=== PATIENT | female | born 1930 | race Caucasian/White ===

== ENCOUNTER 2017-04-13 19:50 | Emergency (ER) | payer OTHER, MEDICARE ==
[2017-04-13 20:02] VITALS: BP 190/87; PULSE 72; TEMP 98; BMI 25.7
--- NOTE | 2017-04-13 21:05 | PDOC ---
History of Present Illness - General Chief Complaint: Injury Stated Complaint: INJURY TO RIGHT RING FINGER Time Seen by Provider: 04/13/17 21:03 Past History - Past Medical History Allergies/Adverse Reactions: Allergies Allergy/AdvReac Type Severity Reaction Status Date / Time amoxicillin Allergy Verified 12/21/15 15:05 ibuprofen [From Advil] Allergy Verified 04/13/17 19:53 lidocaine Allergy Verified 12/21/15 15:05 Home Medications: Ambulatory Orders RX: Alprazolam 0.25 mg PO DAILY 12/21/15 RX: Amlodipine Besylate 5 mg PO DAILY 12/21/15 RX: Ciclopirox/Skin Cleanser No.28 [Ciclodan 0.77% Cream Kit] 544 gm TP DAILY RX: Furosemide 20 mg PO DAILY PRN 12/21/15 RX: Metoprolol Succinate [Toprol XL -] 50 mg PO DAILY 12/21/15 RX: Ranitidine [Zantac -] 150 mg PO DAILY 12/21/15 RX: Wheat Dextrin [Benefiber] 1 each PO DAILY 12/24/15 Diabetes: Yes GI Disorders: Yes (GERD;ULCERATIVE COLITIS) HTN: Yes - Surgical History Orthopedic Surgery: Yes (ROTATOR CUFF) - Psycho/Social/Smoking Cessation Hx Anxiety: No Suicidal Ideation: No Smoking History: Never smoked Have you smoked in the past 12 months: No Information on smoking cessation initiated: No Hx Alcohol Use: No Drug/Substance Use Hx: No Substance Use Type: None *Physical Exam - Vital Signs Last Vital Signs Temp Pulse Resp BP Pulse Ox 98 F 72 20 190/87 99 04/13/17 19:58 04/13/17 19:58 04/13/17 19:58 04/13/17 19:58 04/13/17 19:58 ED Treatment Course - RADIOLOGY Radiology Studies Ordered: Category Date Time Status FINGER(S) RIGHT [RAD] Stat Radiology 04/13/17 20:02 Completed Medical Decision Making - Medical Decision Making 04/13/17 21:22 86 F with tuft fx of R 4th finger. No evidence of nailbed injury on exam, no subungual hematoma. Pt with no evidence of neurovascular injury, flexor and extensor tendons intact. - Finger splint - Hand clinic follow up *DC/Admit/Observation/Transfer Diagnosis at time of Disposition: Closed fracture of tuft of distal phalanx of finger - Discharge Dispostion Disposition: HOME Condition at time of disposition: Stable - Referrals Referrals: Vanessa Arnold MD [Primary Care Provider] - Marlon Nicole MD [Staff Physician] - - Patient Instructions Printed Discharge Instructions: DI for Finger Fracture Additional Instructions: You must see an orthopedic surgeon in 1 week for a re-evaluation, and keep your finger in the splint until you are able to see an orthopedist. Failure to do so may result in improper healing and deformity of your finger.
--- NOTE | 2017-04-14 11:41 | PDOC ---
Patient Follow-up (Call Back) - Post ED Follow - Up Condition at time of discharge: Stable Disposition at time of original discharge: HOME - Disposition Rx Needed: Yes Additional Instructions/Notes: Pt called stating she was expecting a Percocet rx but it was never sent. Given percocet last night with good relief and slept throughout the night. She has tramadol at home from prior injury but states it gives her bad side effects. I warned her extensively of the risks of taking percocet (particularly given her age) but she states she tolerated it well and will take it only at night before going to bed. I warned of the risks of getting up during the night also. Percocet rx sent to preferred pharmacy with clear instructions.
== END 2017-04-13 21:36 | disposition home or self-care (01) ==
LOC: FER 19:50
PROC: 2W3JX1Z Immobilization of Right Finger using Splint (ICD-10-PCS; principal; 2017-04-13)
DX: S62.664A Nondisplaced fracture of distal phalanx of right ring finger, initial encounter for closed fracture (principal); X58.XXXA Exposure to other specified factors, initial encounter; Y93.89 Activity, other specified; Y92.9 Unspecified place or not applicable
CPT/HCPCS: 73140-TC-RT; 99281-25

== ENCOUNTER 2017-08-15 20:50 | Emergency (ER) | payer OTHER, MEDICARE ==
--- NOTE | 2017-08-15 21:11 | PDOC ---
History of Present Illness - General History Source: Patient Exam Limitations: No Limitations - History of Present Illness Initial Comments: 08/15/17 22:10 The patient is a 87 year old female with a significant PMH of hypertension and ulcerative colitis who presents to the emergency department with an episode of high blood pressure and mild heachache today. The patient states she forgot to take her amlodipine this morning so she took her med at 4:00PM today. The patient measured her blood pressure at home where it was 200 systolic but cannot recall the diastolic. She was worried her machine was inaccurate so she went for a repeat read at [facility] where it was 200/90. At presentation, her blood pressure was 163/71. The patient states she exercises regularly but felt unwell today and decided not to exercise. The patient reports she has been eating soups from a local diner almost every day. The patient notes she has not eaten anything since lunch. The patient denies any recent anxiety. The patient denies chest pain, shortness of breath, and dizziness. Denies fever, chills, nausea, vomit, diarrhea and constipation. Denies dysuria, frequency, urgency and hematuria. Allergies: amoxicillin, ibuprofen, lidocaine Past surgical history: None reported Social history: No reported alcohol, cigarette, or drug use. PCP: Dr. Vanessa Arnold <Jody Otto - Last Filed: 08/15/17 22:10> <Jessie Alfonso - Last Filed: 08/16/17 07:04> - General Chief Complaint: Blood Pressure Problem Stated Complaint: ELEVATED BLOOD PRESSURE Time Seen by Provider: 08/15/17 21:05 Past History <Jody Otto - Last Filed: 08/15/17 22:10> - Past Medical History Diabetes: Yes GI Disorders: Yes (GERD;ULCERATIVE COLITIS) HTN: Yes - Surgical History Orthopedic Surgery: Yes (ROTATOR CUFF) - Suicide/Smoking/Psychosocial Hx Smoking History: Never smoked Have you smoked in the past 12 months: No Hx Alcohol Use: No Drug/Substance Use Hx: No Substance Use Type: None <Jessie Alfonso - Last Filed: 08/16/17 07:04> - Past Medical History Allergies/Adverse Reactions: Allergies Allergy/AdvReac Type Severity Reaction Status Date / Time amoxicillin Allergy Verified 08/15/17 20:57 ibuprofen [From Advil] Allergy Verified 08/15/17 20:57 lidocaine Allergy Verified 08/15/17 20:57 Home Medications: Ambulatory Orders Alprazolam 0.25 mg PO DAILY 12/21/15 Amlodipine Besylate 5 mg PO DAILY 12/21/15 Ciclopirox/Skin Cleanser No.28 [Ciclodan 0.77% Cream Kit] 544 gm TP DAILY Furosemide 20 mg PO DAILY PRN 12/21/15 Ranitidine [Zantac -] 150 mg PO DAILY 12/21/15 Wheat Dextrin [Benefiber] 1 each PO DAILY 12/24/15 Review of Systems - Review of Systems Able to Perform ROS?: Yes Comments:: 08/15/17 22:11 GENERAL/CONSTITUTIONAL: No fever or chills. No weakness. HEAD, EYES, EARS, NOSE AND THROAT: No change in vision. No ear pain or discharge. No sore throat. CARDIOVASCULAR: No chest pain or shortness of breath. RESPIRATORY: No cough, wheezing, or hemoptysis. GASTROINTESTINAL: No nausea, vomiting, diarrhea or constipation. GENITOURINARY: No dysuria, frequency, or change in urination. MUSCULOSKELETAL: No joint or muscle swelling or pain. No neck or back pain. SKIN: No rash NEUROLOGIC: (+) Headache. No vertigo, loss of consciousness, or change in strength/sensation. ENDOCRINE: No increased thirst. No abnormal weight change. HEMATOLOGIC/LYMPHATIC: No anemia, easy bleeding, or history of blood clots. ALLERGIC/IMMUNOLOGIC: No hives or skin allergy. <Jody Otto - Last Filed: 08/15/17 22:10> *Physical Exam - Vital Signs Last Vital Signs Temp Pulse Resp BP Pulse Ox 98.4 F 60 20 162/76 99 08/15/17 20:57 08/15/17 20:57 08/15/17 20:57 08/15/17 20:57 08/15/17 20:57 - Physical Exam Comments: 08/15/17 22:11 GENERAL: Awake, alert, and fully oriented, in no acute distress HEAD: No signs of trauma EYES: PERRLA, EOMI, sclera anicteric, conjunctiva clear ENT: Auricles normal inspection, hearing grossly normal, nares patent, oropharynx clear without exudates. Moist mucosa NECK: Normal ROM, supple, no lymphadenopathy, JVD, or masses LUNGS: Breath sounds equal, clear to auscultation bilaterally. No wheezes, and no crackles HEART: Regular rate and rhythm, normal S1 and S2, no murmurs, rubs or gallops ABDOMEN: Soft, nontender, normoactive bowel sounds. No guarding, no rebound. No masses EXTREMITIES: Normal range of motion, no edema. No clubbing or cyanosis. No cords , erythema, or tenderness NEUROLOGICAL: Cranial nerves II through XII grossly intact. Normal speech, normal gait SKIN: Warm, Dry, normal turgor, no rashes or lesions noted. <Jody Otto - Last Filed: 08/15/17 22:10> - Vital Signs Last Vital Signs Temp Pulse Resp BP Pulse Ox 98.4 F 60 20 162/76 99 08/15/17 20:57 08/15/17 20:57 08/15/17 20:57 08/15/17 20:57 08/15/17 20:57 <Jessie Alfonso - Last Filed: 08/16/17 07:04> ED Treatment Course - Medications Given in the ED: ED Medications Discontinued Medications Generic Name Dose Route Start Last Admin Trade Name Freq PRN Reason Stop Dose Admin Furosemide 20 mg 08/15/17 21:33 08/15/17 21:42 Lasix - PO 08/15/17 21:34 20 mg ONCE ONE Administration <Jody Otto - Last Filed: 08/15/17 22:10> Medical Decision Making - Medical Decision Making 08/16/17 07:02 Pt comes with incidentally high BP. She checked her BP only because her neighbor was doing the same. Pt has no complaints. We figured that pt has been eating a lot of salty soup from the diner ordering out. Pt has no other complaints. Exam normal, EKG nonspecific T changes. Pt feels good. She was given a dose of lasix (her dr prescribed her the same PRN - pt admits that she rarely takes it.) Pt will go home and follow with PMD as needed. <Jessie Alfonso - Last Filed: 08/16/17 07:04> *DC/Admit/Observation/Transfer - Attestations Scribe Attestion: 08/15/17 22:12 Documentation prepared by Jody Otto, acting as chief medical officer for Jessie Alfonso MD. <Jody Otto - Last Filed: 08/15/17 22:10> - Discharge Dispostion Admit: No <Jessie Alfonso - Last Filed: 08/16/17 07:04> Diagnosis at time of Disposition: Hypertension - Discharge Dispostion Disposition: HOME Condition at time of disposition: Stable - Patient Instructions Printed Discharge Instructions: DI for High Blood Pressure, How to Monitor Your Blood Pressure at Home
[2017-08-15 21:16] VITALS: BP 162/76; PULSE 60; TEMP 98.4; BMI 23.9
[2017-08-15] MEDS ORDERED: FUROSEMIDE 20 MG TABLET (FP) PO ONE (21:33)
[2017-08-15] MEDS ORDERED: FUROSEMIDE 40 MG TABLET (FP) ONE ×2 (21:38→21:39)
--- NOTE | 2017-08-16 17:11 | EKG ---
Test Reason : Blood Pressure : / mmHG Vent. Rate : 053 BPM Atrial Rate : 053 BPM P-R Int : 178 ms QRS Dur : 084 ms QT Int : 404 ms P-R-T Axes : 049 -11 024 degrees QTc Int : 379 ms SINUS BRADYCARDIA POSSIBLE LEFT ATRIAL ENLARGEMENT LEFT VENTRICULAR HYPERTROPHY NONSPECIFIC T WAVE ABNORMALITY ABNORMAL ECG WHEN COMPARED WITH ECG OF 10-DEC-2008 07:27, T WAVE INVERSION MORE EVIDENT IN ANTERIOR LEADS Confirmed by JACKELINE AGGARWAL, MICHELLE ([id number]) on 08/16/2017 5:11:34 PM Referred By: Confirmed By:MICHELLE VIVEROS MD
== END 2017-08-15 22:10 | disposition home or self-care (01) ==
LOC: JER 20:50
DX: I10 Essential (primary) hypertension (principal); E11.9 Type 2 diabetes mellitus without complications; Z87.19 Personal history of other diseases of the digestive system
CPT/HCPCS: 93005; 93010; 99281-25

== ENCOUNTER 2019-07-30 14:02 | Inpatient (IN) | payer OTHER, MEDICARE ==
--- NOTE | 2019-07-30 14:53 | PDOC ---
History of Present Illness - General Chief Complaint: Injury Stated Complaint: FALL Time Seen by Provider: 07/30/19 14:53 History Source: Patient, Family Exam Limitations: No Limitations - History of Present Illness Initial Comments: 88 year old female with PMH HTN, ulcerative colitis, recent MOHS surgery L ankle presented to ED for right hip pain and right shoulder pain s/p fall today. Pt reported she was walking in her lobby and the marble floor caused her to slip and fall onto her right side. She denied prodromal symptoms including chest pain, shortness of breath, lightheadedness, palpitations, syncope. She denied headache, neck pain, LOC, vomiting, chest pain, back pain, abdominal pain. She reported she was unable to ambulate on her own after the fall. Allergies: NSAIDs ROS General: denied fever, chills, generalized weakness. HEENT: denied sore throat, rhinorrhea, ear pain. Cardiovascular: denied chest pain, palpitations, syncope, diaphoresis. Respiratory: denied shortness of breath, cough, sputum production, hemoptysis. Gastrointestinal: denied abdominal pain, nausea, vomiting, diarrhea, constipation, blood in stool. Genitourinary: denied dysuria, increased urinary frequency, hematuria, urinary incontinence, flank pain. Back: denied back pain. Musculoskeletal: admitted to shoulder pain, hip pain. Neurological: denied headache, dizziness, numbness, tingling, weakness. Integumentary: denied rash, laceration, abrasion. Hematologic/Lymphatic: denied bruising or bleeding. PE Constitutional: Well-nourished, Well-developed, appearing stated age. Airway: intact Breathing: bilateral breath sounds Circulation: 2+ carotid pulse B/L HEENT: head is normocephalic, atraumatic. No facial bones tenderness to palpation. No ugarte sign. No raccoon eyes. EOMI. PERRLA. Neck: supple. Full ROM. no midline c-spine tenderness to palpation. No step offs. Cardiovascular: regular heart rhythm. no murmurs. no pericardial friction rub. Chest wall: No tenderness to palpation of anterior chest wall. No deformity to anterior chest wall. Respiratory: clear to auscultation bilaterally. no crackles, rhonchi or wheezing. no stridor. Upper extremities: no shoulder tenderness bilaterally. Pt will not ambulate left shoulder 2/2 pain. Gastrointestinal: soft, nontender. normal bowel sounds. no rebound, guarding, masses. No ecchymoses. Back: no midline T-spine or L-spine tenderness to palpation. No step offs. Pelvis: lower extremities equal in length without external rotation. No hip tenderness to palpation. No tenderness to palpation of femur area bilaterally. Extremities: peripheral pulses intact. no lower extremity edema. sutures noted to left medial aspect of anterior lower leg. Neurological: CN 2-12 grossly intact. moves all four extremities. Psych: awake, alert, oriented x3. follows commands. answers questions appropriately. Past History - Past Medical History Allergies/Adverse Reactions: Allergies Allergy/AdvReac Type Severity Reaction Status Date / Time amoxicillin Allergy Verified 07/30/19 15:15 aspirin Allergy Verified 07/30/19 15:15 ibuprofen [From Advil] Allergy Verified 07/30/19 15:15 lidocaine Allergy Verified 07/30/19 15:15 Home Medications: Ambulatory Orders Amlodipine Besylate 5 mg PO DAILY 12/21/15 - Psycho Social/Smoking Cessation Hx Smoking History: Never smoked Have you smoked in the past 12 months: No Hx Alcohol Use: No Drug/Substance Use Hx: No Substance Use Type: None ED Treatment Course - LABORATORY CBC & Chemistry Diagram: 07/30/19 18:25 07/30/19 18:25 Medical Decision Making - Medical Decision Making 88 year old female with above PMH presented to ED for right shoulder pain and right hip pain s/p mechanical fall today. Initial Vital Signs Temp Pulse Resp BP Pulse Ox 98.6 F 87 16 112/58 L 98 07/30/19 14:05 07/30/19 14:05 07/30/19 14:05 07/30/19 14:05 07/30/19 14:05 Afebrile. No tachycardia. No tachypnea. Normal BP. No hypoxia on room air. Labs ordered: none Imaging ordered: CT head, CT cervical spine, CXR, pelvis and right hip XR, right shoulder XR Medications ordered: Percocet 1 pill once EKG performed at 1526: rate 74, regular rhythm, normal axis, normal intervals, QTc 412, nonspecific ST changes. 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 TECHNIQUE: Axial non-contrast images of the head obtained from the skull base to the vertex. Radiation Dose Reduction: This CT exam was performed using one or more of the following dose reduction techniques: automated exposure control, adjustment of the mA and/or kV according to patient size, use of iterative reconstruction technique. Radiation Dose: Based on a 16 cm phantom, the estimated radiation dose CTDIvol mGy for each series in this exam is 18.2. The estimated cumulative dose (DLP mGy-cm) is 349.1. FINDINGS: Parenchyma: No acute intracranial hemorrhage or mass effect. No hypodensity. Extra-axial collection: No extra-axial fluid collection or hemorrhage. Ventricles and cisterns: Normal and symmetric in size and shape. No SAH. Paranasal sinuses: Visualized portions are unremarkable. Mastoid air cells: Unremarkable. Orbits: Visualized portions are unremarkable. Calvarium: No acute fracture. IMPRESSION: No evidence of acute intracranial abnormality. One or more of the following dose reduction techniques were used: automated exposure control, adjustment of the mA and/or kV according to patient size, use of iterative reconstructive technique. THIS DOCUMENT HAS BEEN ELECTRONICALLY SIGNED Khoa Hooper MD 07/30/2019 17:46 EST [facility]illy. Please call Imaging [facility] Plate Installer [phone] ([phone]) with questions. Khoa Hooper MD 07/30/19 18:11 XRs shows no acute fractures/dislocations by my and Dr. Alvarez's view -Pending official reports. Pt unable to ambulate, unable to bend the right knee. Imaging ordered: Pelvis CT Medications ordered: tylenol IV, morphine 2 mg IV once Labs ordered: CBC, CMP, coags, type and screen 07/30/19 19:18 Pt signed out to Dr. Perez. Discharge - Discharge Information Problems reviewed: Yes Clinical Impression/Diagnosis: Hip pain - Follow up/Referral - Patient Discharge Instructions - Post Discharge Activity
--- NOTE | 2019-07-30 15:00 | PDOC ---
Attending Attestation - Resident Resident Name: MarissaHeidi - HPI HPI: 07/30/19 18:22 Pt presents to the ED complaining of R sided pain after mechanical trip and fall. Denies LOC and states that she did not hit her head. Unable to ambulate after the fall. Complaining of pain in the R hip and leg, R shoulder and arm. - Physicial Exam PE: 07/30/19 18:38 Agree with resident exam. Patient is alert and oriented and appears uncomfortable. Patient is unable to move her R arm or leg. No bony deformity or tenderness. No abdominal or chest tenderness. - Medical Decision Making 07/30/19 18:39 PT presents to the ED complaining of diffuse R sided pain. CT head and C spine checked to rule out intracranial or cervical spinal injury and is negative. Xrays of the R shoulder and hip are negative for fx by my read. Lenet remains unable to ambulate despite percoset. Will give pain control, check Ct of the pelvis to rule out hip fx and reassess. Given that patient lives alone and is currently unable to ambulate, will consider admission for short term rehab placement if patient is unable to ambulate after pain control.
[2019-07-30] MEDS ORDERED: ACETAMINOPHEN 1000 MG/100 ML VIAL (NON FORMULARY) IVPB ONE (18:07)
[2019-07-30] MEDS ORDERED: morphine CARPU-JECT 4 MG/1 ML DISP.SYRIN IVPUSH ONE (18:10)
[2019-07-30] MEDS ORDERED: MORPHINE SULFATE 2 MG/ML VIAL ONE (18:18)
[2019-07-30] MEDS ORDERED: ACETAMINOPHEN INJECTION 100 ML IVPB ONE (18:19)
[2019-07-30 18:46] LABS: HEMOGLOBIN 10.6 GM/dL (10.7-15.3)
[2019-07-30 18:59] LABS: BASO % 0.1 % (0-2.0); HEMATOCRIT 31.8 % (32.4-45.2); LYMPH % 3.5 % (8-40); MCH 30.1 pg (25.7-33.7); MCHC 33.4 g/dl (32.0-36.0); MEAN CELL VOLUME 90.3 fl (80-96); MEAN PLT VOLUME 11.3 fl (7.5-11.1); MONO % 3.8 % (3.8-10.2); NEUT % 92.6 % (42.8-82.8); RBC 3.52 M/mm3 (3.60-5.2); RDW 14.5 % (11.6-15.6); WHITE BLOOD COUNT 10.5 K/mm3 (4.0-10.0)
[2019-07-30 19:08] LABS: INR 1.07 (0.83-1.09); PROTHROMBIN TIME (PATIENT) 12.6 SEC (9.7-13.0)
[2019-07-30 19:10] LABS: ACTIVATED PTT 29.7 SECONDS (25.2-36.5)
[2019-07-30 19:12] LABS: ALBUMIN 3.4 g/dl (3.4-5.0); BILIRUBIN,TOTAL 0.6 mg/dL (0.2-1); BLOOD UREA NITROGEN 18.5 mg/dL (7-18); CALCIUM 8.8 mg/dL (8.5-10.1); CREATININE 0.6 mg/dL (0.55-1.3); TOT PROT 6.5 g/dl (6.4-8.2)
--- NOTE | 2019-07-30 19:29 | PDOC ---
*Physical Exam - Vital Signs Last Vital Signs Temp Pulse Resp BP Pulse Ox 98.6 F 87 16 112/58 L 98 07/30/19 14:05 07/30/19 14:05 07/30/19 14:05 07/30/19 14:05 07/30/19 14:05 <Dinesh Perez - Last Filed: 07/30/19 19:29> - Vital Signs Last Vital Signs Temp Pulse Resp BP Pulse Ox 98.6 F 87 16 112/58 L 98 07/30/19 14:05 07/30/19 14:05 07/30/19 14:05 07/30/19 14:05 07/30/19 14:05 <Jessie Alfonso - Last Filed: 07/31/19 07:03> ED Treatment Course - LABORATORY CBC & Chemistry Diagram: 07/30/19 18:25 07/30/19 18:25 - ADDITIONAL ORDERS Additional order review: Laboratory Results 07/30/19 07/30/19 18:25 18:25 PT with INR 12.60 INR 1.07 PTT (Actin FS) 29.7 Sodium 136 Potassium 4.0 Chloride 102 Carbon Dioxide 25 Anion Gap 9 BUN 18.5 H Creatinine 0.6 Est GFR (CKD-EPI)AfAm 94.32 Est GFR (CKD-EPI)NonAf 81.38 Random Glucose 136 H Calcium 8.8 Total Bilirubin 0.6 AST 53 H ALT 34 Alkaline Phosphatase 70 Total Protein 6.5 Albumin 3.4 07/30/19 18:25 RBC 3.52 L MCV 90.3 MCHC 33.4 RDW 14.5 MPV 11.3 H Neutrophils % 92.6 H Lymphocytes % 3.5 L Monocytes % 3.8 Eosinophils % 0.0 Basophils % 0.1 - Medications Given in the ED: ED Medications Discontinued Medications Generic Name Dose Route Start Last Admin Trade Name Elizabeth PRN Reason Stop Dose Admin Acetaminophen 1,000 mg 07/30/19 18:07 07/30/19 18:30 Ofirmev Injection - IVPB 07/30/19 18:08 1,000 mg ONCE ONE Administration Morphine Sulfate 2 mg 07/30/19 18:10 07/30/19 18:25 Morphine Injection - IVPUSH 07/30/19 18:11 2 mg ONCE ONE Administration Oxycodone/Acetaminophen 1 combo 07/30/19 15:07 07/30/19 15:18 Percocet 5/325 - PO 07/30/19 15:08 1 combo ONCE ONE Administration <Dinesh Perez - Last Filed: 07/30/19 19:29> - LABORATORY CBC & Chemistry Diagram: 07/30/19 18:25 07/30/19 18:25 - ADDITIONAL ORDERS Additional order review: Laboratory Results 07/30/19 07/30/19 07/30/19 18:25 18:25 18:25 PT with INR 12.60 INR 1.07 PTT (Actin FS) 29.7 Sodium 136 Potassium 4.0 Chloride 102 Carbon Dioxide 25 Anion Gap 9 BUN 18.5 H Creatinine 0.6 Est GFR (CKD-EPI)AfAm 94.32 Est GFR (CKD-EPI)NonAf 81.38 Random Glucose 136 H Calcium 8.8 Total Bilirubin 0.6 AST 53 H ALT 34 Alkaline Phosphatase 70 Total Protein 6.5 Albumin 3.4 Blood Type A POSITIVE Antibody Screen Negative 07/30/19 18:25 RBC 3.52 L MCV 90.3 MCHC 33.4 RDW 14.5 MPV 11.3 H Neutrophils % 92.6 H Lymphocytes % 3.5 L Monocytes % 3.8 Eosinophils % 0.0 Basophils % 0.1 - Medications Given in the ED: ED Medications Discontinued Medications Generic Name Dose Route Start Last Admin Trade Name Elizabeth PRN Reason Stop Dose Admin Acetaminophen 1,000 mg 07/30/19 18:07 07/30/19 18:30 Ofirmev Injection - IVPB 07/30/19 18:08 1,000 mg ONCE ONE Administration Morphine Sulfate 2 mg 07/30/19 18:10 07/30/19 18:25 Morphine Injection - IVPUSH 07/30/19 18:11 2 mg ONCE ONE Administration Oxycodone/Acetaminophen 1 combo 07/30/19 15:07 07/30/19 15:18 Percocet 5/325 - PO 07/30/19 15:08 1 combo ONCE ONE Administration <Jessie Alfonso - Last Filed: 07/31/19 07:03> Medical Decision Making - Medical Decision Making 07/30/19 21:48 Patient Name: TRISTAN SOTELO THIS IS A PRELIMINARY REPORT FROM [facility] [employer] DATE OF SERVICE: 2019-07-30 20:28:58 IMAGES: [id number] EXAM: CT PELVIS WITHOUT CONTRAST HISTORY: 88-year-old female, evaluate for fracture COMPARISON: No available comparison. TECHNIQUE: Axial sections through the pelvis were performed with coronal and sagittal reformatted images. Radiation Dose Reduction: This CT exam was performed using one or more of the following dose reduction techniques: automated exposure control, adjustment of the mA and/or kV according to patient size, use of iterative reconstruction technique. Radiation Dose: Based on a 32 cm phantom, the estimated radiation dose CTDIvol mGy for each CONFIDENTIALITY NOTICE: This information is intended only for the use of the recipient(s) named above. If you are not the intended recipient, or a person responsible for delivering it to the intended recipient, you are hereby notified that any disclosure, copying, distribution or use of any of the information contained in or attached to this transmission is STRICTLY PROHIBITED. If you have received this transmission in error, please immediately notify Imaging Senior Brand Manager and destroy the original transmission and its attachments without saving them in any manner [address] [facility] [address] [place] [address] Phone: [phone] ([phone]) Fax: Email: [email or web address] Patient Information: : 1930 Order Type: Preliminary Name: DEEPAK HUDSON Sex: F Study Description: CT PELVIS Modality: CT Location: [facility] Referring Physician: NEVIN MCDANIELS series in this exam is 39.17. The estimated cumulative dose (DLP mGy-cm) is 1281.3. FINDINGS: Limited evaluation of the vasculature without IV contrast. Stool burden within the colon suggesting constipation. Vascular calcifications. 2.1 cm left ovarian cystic lesion; this is abnormal for age. Recommend follow- up pelvic ultrasound in one year. Asymmetric wall thickening of the urinary bladder; findings are concerning for neoplasm. Recommend cystoscopy. There is large quantity of amorphous soft tissue density within the anterior pelvis most compatible with hemorrhage. This measures 10.5 x 9.7 x 9.2 cm. There is right superior ramus and pubic symphysis comminuted fracture as well as nondisplaced acute fracture of the right inferior pubic ramus. There is nondisplaced acute fracture of the left inferior pubic ramus. Both proximal femurs appear intact. Nondisplaced acute fracture extending to the right sacral ala. Fibroid uterus. A pessary is noted. Diffuse osteopenia noted. No lymphadenopathy identified. Age-indeterminate approximately 50% height loss of the L5 vertebral body; recommend correlation with physical exam findings. IMPRESSION: There is right superior ramus and pubic symphysis comminuted fracture as well as nondisplaced acute fracture of the right inferior pubic ramus. There is nondisplaced acute fracture of the left inferior pubic ramus. Both proximal femurs appear intact. Nondisplaced acute fracture extending to the right sacral ala. There is large quantity of amorphous soft tissue density within the anterior pelvis most compatible with hemorrhage. This measures 10.5 x 9.7 x 9.2 cm. Age-indeterminate approximately 50% height loss of the L5 vertebral body; recommend correlation with physical exam findings. Asymmetric wall thickening of the urinary bladder; findings are concerning for neoplasm. Recommend cystoscopy. The dome of the bladder measures 2.1 cm in thickness. 2.1 cm left ovarian cystic lesion; this is abnormal for age. Recommend follow- up pelvic ultrasound in one year to exclude neoplasm. Large stool burden 07/30/19 22:01 Pt will be admitted to the hospitalist service <Jessie Alfonso - Last Filed: 07/31/19 07:03> Discharge <Dinesh Perez - Last Filed: 07/30/19 19:29> - Discharge Information Problems reviewed: Yes - Admission Yes <Jessie Alfonso - Last Filed: 07/31/19 07:03> - Discharge Information Clinical Impression/Diagnosis: Hip pain, Fracture of pubic ramus Condition: Guarded
[2019-07-30 20:32] LABS: ANISOCYTOSIS 1+
[2019-07-30] MEDS ORDERED: ACETAMINOPHEN 325 MG TABLET (FP) PO ONE (23:33)
[2019-07-30] MEDS ORDERED: ACETAMINOPHEN 325 MG TABLET (FP) ONE (23:59)
[2019-07-31] MEDS: MORPHINE SULFATE 2 MG/ML VIAL IVPUSH PRN ×2 (02:39→09:43)
[2019-07-31] MEDS: SODIUM CHLORIDE 1,000 ML IV SCH (02:39)
[2019-07-31 03:55] VITALS: BMI 23.9
[2019-07-31] MEDS: amLODIPine BESYLATE 5 MG TABLET (FP) PO SCH (09:42)
[2019-07-31] MEDS ORDERED: HEPARIN NA (PORCINE) 5,000 UNITS/ML 1ML VIAL SQ SCH (10:00)
--- NOTE | 2019-07-31 10:26 | CONSULT ---
Consult - text type - Consultation Consultation Note: ORTHOPEDIC SURGERY CONSULTATION NOTE Department of Orthopedic Surgery HISTORY OF PRESENT ILLNESS Karolina Guillen is an 88 year old female who was admitted to [facility] after a mechanical fall. She has a past medical history significant for HTN, ulcerative colitis, recent left ankle MOHS surgery. The orthopedic service was consulted for right shoulder and right hip pain. The mechanical fall occurred yesterday. She landed on her right side. The patient notes pain in the right shoulder and right groin and buttock. Denies any other injuries. Denies numbness, tingling or other constitutional complaints. She has a prior history of right shoulder rotator cuff dysfunction that is being treated by an orthopedic surgeon in [place]. She also stone s a prior history of left elbow lateral epicondylitis and received two cortisone injections in [place]. The patient is retired. Denies tobacco use, drug use, alcohol abuse. The patient lives alone and uses no assistive devices at baseline. Her niece is Luciana Fraire ). Intake & Output 07/29/19 07/30/19 07/31/19 23:59 23:59 23:59 Intake Total 126 Balance 126 Intake: IV 126 Normal Saline - 1,000 ml 126 @ 42 mls/hr IV ASDIR DALY Rx#:[id number] Other: Voiding Method Urinal Bowel Movement No Weight 134 lb 135 lb Height 5 ft 3 in 5 ft 3 in Body Mass Index (BMI) 23.7 23.9 Weight Measurement Method Built in [facility] Active Medications Generic Name Dose Route Start Last Admin Trade Name Freq PRN Reason Stop Dose Admin Acetaminophen 650 mg 07/31/19 01:43 Tylenol - PO Q6H PRN PAIN LEVEL 1-5 Amlodipine Besylate 5 mg 07/31/19 10:00 07/31/19 09:42 Norvasc - PO 5 mg DAILY DALY Administration Heparin Sodium (Porcine) 5,000 unit 07/31/19 10:00 07/31/19 09:44 Heparin - SQ 5,000 unit BID DALY Administration Sodium Chloride 1,000 mls @ 42 mls/hr 07/31/19 01:45 07/31/19 02:39 Normal Saline - IV 42 mls/hr ASDIR DALY Administration Morphine Sulfate 1 mg 07/31/19 01:43 07/31/19 09:43 Morphine Sulfate IVPUSH 1 mg Q3H PRN Administration PAIN LEVEL 6-10 Vital Signs (last) Temp Pulse Resp BP Pulse Ox 97.8 F 72 20 136/80 96 07/31/19 06:20 07/31/19 06:20 07/31/19 06:20 07/31/19 06:20 07/31/19 04:02 Laboratory (coagulation) PT with INR 12.60 SEC (9.7-13.0) 07/30/19 18:25 Laboratory 07/30/19 18:25 07/30/19 18:25 FAMILY HISTORY Reviewed an non-contributory. REVIEW OF SYMPTOMS A twelve-point review of systems was performed and was negative except as noted in HPI. PHYSICAL EXAM Constitutional: Alert and oriented to person, place, and time. Appears well- developed and well-nourished. No acute distress, appropriate mood and affect. Right Upper Extremity: Skin warm, dry, and intact; no lesions, rashes or ulcers noted. Muscle mass equal and symmetric to contralateral side. No atrophy noted. No masses or effusions noted. Tender to palpation at right greater tuberosity; nontender throughout rest of extremity. Full active and passive ROM elbow, wrist and hand, free from pain. Shoulder AROM limited in FE; able to IR/ER actively. Full PROM shoulder. Joints stable with no pathologic laxity. M/R/U/ MSK/AX motor intact; SILT distally; 2+ radial pulses; Cap refill brisk. Tone and reflexes normal. Left Upper Extremity: Skin warm, dry, and intact; no lesions, rashes or ulcers noted. Muscle mass equal and symmetric to contralateral side. Left elbow skin discoloration and atrophy. No atrophy noted. No masses or effusions noted. Tenderness to palpation left extensor tendon origin; nontender throughout rest of extremity. Full passive and active ROM, free from pain. Joints stable with no pathologic laxity. M/R/U/MSK/AX motor intact; SILT distally; 2+ radial pulses ; Cap refill brisk. Tone and reflexes normal. Right Lower Extremity: Skin warm, dry, and intact; no lesions, rashes or ulcers noted. Muscle mass equal and symmetric to contralateral side. No atrophy noted. No masses or effusions noted. Tender to palpation at pubic symphysis and ishium ; nontender throughout rest of extremity. No cords or calf tenderness; No significant calf/ankle edema. Full passive and active ROM, free from pain. Joints stable with no pathologic laxity. EHL/TA/GS motor intact; SILT distally; 2+ DP pulses; Cap refill brisk. Tone and reflexes normal. Left Lower Extremity: Skin sutures left ankle. Muscle mass equal and symmetric to contralateral side. No atrophy noted. No masses or effusions noted. No tenderness to palpation. No cords or calf tenderness. No significant calf/ankle edema. Full passive and active ROM, free from pain. Joints stable with no pathologic laxity. EHL/TA/GS motor intact; SILT distally; 2+ DP pulses; Cap refill brisk. Tone and reflexes normal. IMAGING I personally reviewed radiographs and CT of the right hip and pelvis. They demonstrate a right sided superior and inferior pubic ramus fracture with associated sacral ala fracture. There is an associated hematoma. Radiographs of the right shoulder show no evidence of fracture or dislocation. There are degenerative changes of the greater tuberosity. ASSESSMENT AND PLAN Karolina Guillen is an 88 year old female is an 88 year old female presenting status post mechanical fall with (1) a right sided lateral compression type I pelvic fracture, (2) right shoulder rotator cuff dysfunction, and (3) left elbow lateral epicondylitis. She is hemodynamically stable. We have reviewed the imaging and clinical findings in detail, as well as their potential implications. - FU CT Pelvis radiology read - No orthopedic intervention at this time - Pain control: Transition to oral pain medications, minimize narcotic use - Monitor H/H; consider General Surgery/Interventional radiology consult regarding hematoma management - DVT prophylaxis - PT/OT; WBAT RUE and RLE - May need further imaging of right shoulder and left elbow as an outpatient; if pain and dysfunction persists - May continue with left wrist splint - Elevate HOB, encourage oral intake - Appreciate medical management - Nutrition optimization, decubitus precautions heel/sacrum - Will need postoperative follow up with her contact finger assembler (Dr. Froylan Bernardo) to remove left ankle sutures - Discussed case with her niece Luciana
--- NOTE | 2019-07-31 10:32 | HP ---
Admitting History and Physical - Primary Care Physician PCP: Stella Olivera S - Admission Chief Complaint: fall pelvic pain unable to walk History of Present Illness: 88 year old female with PMH HTN, ulcerative colitis, recent MOHS surgery L ankle presented to ED for right hip pain and right shoulder pain s/p fall today. Pt reported she was walking in her building lobby and the marble floor caused her to slip and fall onto her right side. She denied prodromal symptoms including chest pain, shortness of breath, lightheadedness, palpitations, syncope. She denied headache, neck pain, LOC, vomiting, chest pain, back pain, abdominal pain. She reported she was unable to ambulate on her own after the fall. I d/w pt's PCP dr Clayton Mendez pt asked me to call ms Luciana Fraire [phone] nitangela NOK - I d/w her History Source: Patient, Transfer Record Limitations to Obtaining History: No Limitations - Past Medical History ...: No - Smoking History Smoking history: Never smoked Have you smoked in the past 12 months: No - Alcohol/Substance Use Hx Alcohol Use: No History of Substance Use: reports: None - Social History Usual Living Arrangement: Yes: Alone Do you think of yourself as: Straight/Heterosexual History of Recent Travel: No Home Medications - Allergies Allergies/Adverse Reactions: Allergies Allergy/AdvReac Type Severity Reaction Status Date / Time amoxicillin Allergy Verified 07/30/19 15:15 aspirin Allergy Verified 07/30/19 15:15 ibuprofen [From Advil] Allergy Verified 07/30/19 15:15 lidocaine Allergy Verified 07/30/19 15:15 - Home Medications Home Medications: Ambulatory Orders Amlodipine Besylate 5 mg PO DAILY 12/21/15 Family Medical History Family History: Unremarkable Review of Systems - Review of Systems Constitutional: denies: Diaphoresis, Fever, Lethargy, Loss of Appetite, Unintentional Wgt. Loss Eyes: denies: Blind Spots, Blurred Vision, Double Vision, Photophobia HENT: denies: Difficult Swallowing, Throat Pain Neck: denies: Decreased ROM, Pain on Movement, Stiffness, Swollen Glands, Tenderness Cardiovascular: denies: Chest Pain, Edema, Palpitations, Shortness of Breath Respiratory: denies: Cough, Exercise Intolerance, Hemoptysis, SOB, SOB on Exertion Gastrointestinal: denies: Abdominal Pain, Constipation, Diarrhea, Melena, Nausea , Rectal Bleeding, Vomiting, Vomiting Blood Genitourinary: denies: Burning, Discharge, Dysuria, Flank Pain, Hematuria Musculoskeletal: reports: Extremity Pain (R shoulder and pelvic pain). denies: Back Pain Integumentary: denies: Eczema, Erythema Neurological: denies: Confusion, Dizziness, Headache, Syncope, Unsteady Gait, Weakness Endocrine: denies: Excessive Sweating Hematology/Lymphatic: denies: Excessive Bleeding, Swollen Glands Psychiatric: denies: Anxiety, Depression, Hallucinations, Paranoia, Suicidal Physical Examination Vital Signs: Vital Signs Temperature 97.8 F 07/31/19 06:20 Pulse Rate 72 07/31/19 06:20 Respiratory Rate 20 07/31/19 06:20 Blood Pressure 136/80 07/31/19 06:20 O2 Sat by Pulse Oximetry (%) 96 07/31/19 04:02 Constitutional: Yes: No Distress, Anxious Eyes: Yes: Conjunctiva Clear HENT: Yes: Atraumatic Neck: Yes: Supple Cardiovascular: Yes: Regular Rate and Rhythm Respiratory: Yes: CTA Bilaterally Gastrointestinal: Yes: Soft. No: Tenderness Renal/: No: Hematuria Musculoskeletal: No: Joint Stiffness, Joint Swelling Extremities: Yes: Other ( minimal movements RLE and RUE b/o pain). No: Cold, Cool, Cyanosis Edema: No Integumentary: Yes: Other (L ankle skin sutures). No: Pressure Ulcer, Rash Neurological: Yes: Alert ...Motor Strength: WNL Psychiatric: Yes: Alert. No: Agitated, Suicidal Ideation Labs: CBC, BMP 07/30/19 18:25 07/30/19 18:25 Imaging - Results Chest X-ray: Report Reviewed X-ray: Report Reviewed Cat Scan: Report Reviewed Other: Report Reviewed Assessment/Plan 88 year old female with PMH HTN, ulcerative colitis, recent MOHS surgery L ankle presented to ED for right hip pain, pelvic pain and and right shoulder pain s/p fall xrays and CT c/w pelvic fractures; Xrays R shoulder no fracture ortho and neurology eval; also will ask cardio to see pt to r/o ASHD - fall, presyncope? pt denies LOC pain meds prn d/w pt and niece possible opaites SE ad risks stools softeners to prevent constipation DVT pfx - SCDs, no sq heparin for now, CT c/w large pelvic hematoma; f/u labs r/ o anemia might need PRBC; d/w pt and niece risks of bleeding with sq heparin and risks PE DVT without heparin eval / thickened bladder on CT r/o CA - will need f/u after DC home (but to be done within 1-2 months time sensitive condition d/w pt and niece) ovarian cyst needs EXHIBITS CURATOR eval r/o CA dw pt and niece; can be done outpt (but to be done within 1-2 months time sensitive condition d/w pt and niece) pt frustrated said she can not get OOB or sit up to urinate - will order Puente, d/w pt possible UTI with it; will need PT rehab and SNF d/w CM d/w pt, staff, pt's niece and pt's PCP t time 75 min
--- NOTE | 2019-07-31 11:32 | CON.CARD ---
Consult Consult Specialty:: Cardiology Referred by:: Dr. Olivera Reason for Consultation:: HTN, ? ASHD - History of Present Illness Chief Complaint: Mechanical fall History of Present Illness: 88F with HTN admitted with slip and fall and pelvic fracture. Denies antecedent CP, SOB, palps. Sees Dr. Weston for HTN, now seeing Dr. Sheets as per Dr. Weston. She denies prior WA or PCI. - History Source History Provided By: Patient Limitations to Obtaining History: No Limitations - Past Medical History Cardio/Vascular: Yes: HTN Pulmonary: No: Asthma, Bronchitis, Cancer, COPD, O2 Dependent, Pneumonia, Previously Intubated, Pulmonary Embolus, Pulmonary Fibrosis, Sleep Apnea, Other Gastrointestinal: No: Ascites, Cancer, Constipation, Crohn's Disease, Diverticulitis, Diverticulosis, Esophageal Varices, Gastritis, GERD, GI Bleed, Hemorrhoids, Hiatal Hernia, Inflamatory Bowel Disease, Irritable Bowel Disease, Pancreatitis, Peptic Ulcer Disease, Ulcerative Colitis, Other Hepatobiliary: No: Cirrhosis, Cholelithiasis, Cholecystitis, Choledocholithiasis , Hepatitis A, Hepatitis B, Hepatitis C, Other Renal/: No: Renal Failure, Renal Inusuff, BPH, Cancer, Hematuria, Hemodialysis , Neurogenic Bladder, Renal Calculi, UTI, Other ...: No Heme/Onc: No: Anemia, B12 Deficiency, Bleeding Disorder, Cancer, Current Chemotherapy, Current Radiation Therapy, Hemochromatosis, Hypercoaguable State, Myeloproliferative Synd, Sickle Cell Disease, Sickle Cell Trait, Thrombocytopenia, Other Infectious Disease: No: AIDS, C-Diff, Herpes Zoster, HIV, MRSA, STD's, Tuberculosis, VREF, Other Psych: No: Addictions, Anxiety, Bipolar, Depression, Panic, Psychosis, Schizophrenia, Other Musculoskeletal: No: Bursitis, Chronic low back pain, Hemiparesis, Hemiplegia, Osteoarthritis, Paraplegia, Other Rheumatology: No: Fibromyalgia, Gout, Lupus, Rheumatoid Arthritis, Sarcoidosis, Vasculitis, Other ENT: No: Allergic Rhinitis, Sinusitis, Other Endocrine: No: [place]'s Disease, [place]'s Disease, Diabetes Insipidus, Diabetes Mellitus, Hyperparathyroidism, Hyperthyroidism, Hypothyroidism, Osteopenia, SIADH, Other - Past Surgical History Additional Surgical History: ankle surgery - Alcohol/Substance Use Hx Alcohol Use: No - Smoking History Smoking history: Never smoked Have you smoked in the past 12 months: No - Social History History of Recent Travel: No Home Medications - Allergies Allergies/Adverse Reactions: Allergies Allergy/AdvReac Type Severity Reaction Status Date / Time amoxicillin Allergy Verified 07/30/19 15:15 aspirin Allergy Verified 07/30/19 15:15 ibuprofen [From Advil] Allergy Verified 07/30/19 15:15 lidocaine Allergy Verified 07/30/19 15:15 - Home Medications Home Medications: Ambulatory Orders Amlodipine Besylate 5 mg PO DAILY 12/21/15 Family Medical History Family History: Unremarkable (not pertinent to this presentation) Review of Systems - Review of Systems Constitutional: reports: No Symptoms Eyes: reports: No Symptoms HENT: reports: No Symptoms Neck: reports: No Symptoms Cardiovascular: reports: No Symptoms Respiratory: reports: No Symptoms Gastrointestinal: reports: No Symptoms Genitourinary: reports: No Symptoms Breasts: reports: No Symptoms Reported Musculoskeletal: reports: No Symptoms Integumentary: reports: No Symptoms Neurological: reports: No Symptoms Endocrine: reports: No Symptoms Hematology/Lymphatic: reports: No Symptoms Psychiatric: reports: No Symptoms - Risk Factors Known Risk Factors: Yes: Hypertension Vital Signs: Vital Signs Temperature 97.8 F 07/31/19 06:20 Pulse Rate 72 07/31/19 06:20 Respiratory Rate 20 07/31/19 06:20 Blood Pressure 136/80 07/31/19 06:20 O2 Sat by Pulse Oximetry (%) 96 07/31/19 04:02 Constitutional: Yes: No Distress, Calm Eyes: Yes: Conjunctiva Clear HENT: Yes: Atraumatic, Normocephalic Neck: Yes: Trachea Midline Respiratory: Yes: CTA Bilaterally Gastrointestinal: Yes: Soft Cardiovascular: Yes: Regular Rate and Rhythm JVD: No Carotid Bruit: No PMI: Non-Displaced Heart Sounds: Yes: S1, S2 (rrr, no murmurs) Musculoskeletal: Yes: WNL Extremities: Yes: WNL Edema: No Peripheral Pulses WNL: Yes Neurological: Yes: Alert, Oriented ...Motor Strength: WNL - Other Data Labs, Other Data: CBC, BMP 07/30/19 18:25 07/30/19 18:25 INR, PTT INR 1.07 (0.83-1.09) 07/30/19 18:25 Echo: Pending Imaging - Results X-ray: Report Reviewed Cat Scan: Report Reviewed EKG: Image Reviewed (NSR 70s, LAE, NSST) Assessment/Plan IMP: Mechanical fall Pelvic fx Chronic HTN REC: 1. Continue home BP meds 2. Check orthostatics 3. Echo and holter: doubt arrhythmia in this case, fall sounds purely mechanical 4. Will obtain report of prior stress test from Dr. Weston to resolve the ?of hx of ASHD (pt denies); spoke to Dr. Weston and he will provide records tomorrow. 5. Management fx as outlined by ortho 6. DVT prophylaxis
[2019-07-31] MEDS: DOCUSATE SODIUM 100 MG CAPSULE (FP) PO SCH (12:01)
[2019-07-31] MEDS: oxyCODONE HCL 5 MG TABLET PO PRN ×2 (12:01→18:46)
[2019-07-31] MEDS: ACETAMINOPHEN 325 MG TABLET (FP) PO PRN ×2 (12:02→18:47)
[2019-07-31] MEDS: POLYETHYLENE GLYCOL 3350 119 GM BTL PO SCH (12:13)
--- NOTE | 2019-07-31 16:16 | CONSULT ---
Consult - text type - Consultation Consultation Note: NEUROLOGY CONSULTATION: Events and imaging studies reviewed. Patient examined. Dr. Anders's consultation is read and appreciated. This 88 yo RH woman lives alone. No children. Her niece looks in on her. PMH of HTN- on amlodipine, Ulcerative proctitis, and "Peripheral neuropathy" with occ. tingling in her toes and effect on balance. Episodic LBP in past. Recent MOES surgery left medial ankle for "cancer"- type uncertain. Today, slipped while turning on marble floor falling, without prodromal symptoms , onto her right side without head trauma or LOC. Couldn't get due to right hip and right arm pain. In ED, CT of head (reviewed): shows mild, age-related atrophy. CT of cervical spine shows moderate, diffuse, spondylytic changes without fracture or traumatic injury. A partial T3 compression unchanged 2008 X-R[address] CT of hips and pelvis show inferior and superior Pubic rami fractures on the right. X-rays of right shoulder show know fractures including proximal 2/3 of Humerus. KENYA: No external head trauma. Bruise right knee. Clean suture line left medial ankle. No bruits. Cor reg. Tenderness mid-right humerus. NEURO: MS/Speech: Normal CN II-XII: Normal without nystagmus. gag OK Motor: Cannot elevate right arm due to pain but grasps are normal and symmetrical. No focal weakness including ankle and toe ext. Normal reflexes including AJ's. Toes downgoing. Coord: No left FTN dystaxia Sensory: Min vib loss over left toes. Gait: Deferred. IMP: Non-focal and probably normal neurological exam. A significant peripheral neuropathy is unlikely with preservation of AJ' s. SUGGEST: R/O distal right humerus fracture DVT prophylaxis with SQ Heparin and SCD's. Out patient neuro f/u and evaluation of paresthesiae. Check B12, CK, UA, C&S. Thank you very much, Shaji Baldwin MD
[2019-07-31 20:06] LABS: HYALINE CASTS 3 /lpf (0-8); PH,URINE 5.5 (5.0-8.0); URINE APPEARANCE CLEAR; URINE BACTERIA 0.8 /hpf (NEGATIVE); URINE BILIRUBIN NEGATIVE (NEGATIVE); URINE COLOR YELLOW; URINE GLUCOSE (UA) NEGATIVE (NEGATIVE); URINE KETONE NEGATIVE (NEGATIVE); URINE LEUK ESTERASE 1+ (NEGATIVE); URINE NITRITE NEGATIVE (NEGATIVE); URINE PROTEIN 1+ (NEGATIVE); URINE RBC 1016 /hpf (0-4); URINE UROBILINOGEN 0.2 mg/dL (0.2-1.0); URINE WBC 9 /hpf (0-5)
--- NOTE | 2019-08-01 01:03 | EKG ---
Test Reason : Blood Pressure : / mmHG Vent. Rate : 074 BPM Atrial Rate : 074 BPM P-R Int : 178 ms QRS Dur : 082 ms QT Int : 372 ms P-R-T Axes : 066 001 016 degrees QTc Int : 412 ms NORMAL SINUS RHYTHM POSSIBLE LEFT ATRIAL ENLARGEMENT NONSPECIFIC T WAVE ABNORMALITY ABNORMAL ECG WHEN COMPARED WITH ECG OF 15-AUG-2017 21:36, NO SIGNIFICANT CHANGE WAS FOUND Confirmed by MELI MANDUJANO MD ([id number]) on 08/01/2019 1:02:31 AM Referred By: Confirmed By:MELI MANDUJANO MD
[2019-08-01] MEDS: oxyCODONE HCL 5 MG TABLET PO PRN ×3 (02:26→18:13)
[2019-08-01] MEDS: SODIUM CHLORIDE 1,000 ML IV SCH (06:31)
--- NOTE | 2019-08-01 09:15 | PN ---
Progress Note, Physician Chief Complaint: events noted; pt asked for morphine, then wanted to switch to percocet for pain ; no BM yet - ordered miralax and colace; po fibers and water advised Puente in; had RBCs in US d/w r/o bladder puncture - cystogram ordered; will need cystoscopy outpt for wall thickrening r/o CA d/w pt and niece d/w ortho R shoulder no intervention except PT rehab; pelvic fracture no intervention but PT rehab dropped Hg large pelvic hematoma seen by vascular sx - no sq heparin for now; risks DVT PE d.w pt and niece; Hg 7 transfused 2 U PRBC consults neuro cardio reviewed and d/w pt and niece - Current Medication List Current Medications: Active Medications Acetaminophen (Tylenol -) 650 mg PO Q6H PRN PRN Reason: PAIN LEVEL 1-5 Last Admin: 07/31/19 18:47 Dose: 650 mg Amlodipine Besylate (Norvasc -) 5 mg PO DAILY [facility] Last Admin: 07/31/19 09:42 Dose: 5 mg Docusate Sodium (Colace -) 100 mg PO DAILY [facility] Last Admin: 07/31/19 12:01 Dose: 100 mg Sodium Chloride (Normal Saline -) 1,000 mls @ 42 mls/hr IV ASDIR [facility] Last Admin: 08/01/19 06:31 Dose: 42 mls/hr Oxycodone HCl (Roxicodone -) 5 mg PO Q6H PRN PRN Reason: PAIN LEVEL 7 - 10 Last Admin: 08/01/19 02:26 Dose: 5 mg Polyethylene Glycol (Miralax (For Daily Use) -) 17 gm PO DAILY [facility] Last Admin: 07/31/19 12:13 Dose: 17 gm - Objective Vital Signs: Vital Signs Temperature 97.9 F 08/01/19 06:34 Pulse Rate 71 08/01/19 06:34 Respiratory Rate 20 08/01/19 06:34 Blood Pressure 131/51 L 08/01/19 06:34 O2 Sat by Pulse Oximetry (%) 96 07/31/19 09:00 Constitutional: Yes: No Distress, Anxious Eyes: Yes: Conjunctiva Clear HENT: Yes: Atraumatic Neck: Yes: Supple Cardiovascular: Yes: Regular Rate and Rhythm Respiratory: Yes: CTA Bilaterally Gastrointestinal: Yes: Soft. No: Tenderness Genitourinary: Yes: Puente Present. No: Hematuria Musculoskeletal: No: Joint Stiffness, Joint Swelling Extremities: No: Cold, Cool, Cyanosis Edema: No Wound/Incision: Yes: Sutures Intact (l ANKLE SKIN from previous skin CA removal) Neurological: Yes: Alert ...Motor Strength: WNL Psychiatric: Yes: Alert. No: Agitated, Suicidal Ideation Labs: CBC, BMP 07/30/19 18:25 07/30/19 18:25 INR, PTT INR 1.07 (0.83-1.09) 07/30/19 18:25 - ....Imaging X-ray: Report Reviewed Cat Scan: Report Reviewed Other: Report Reviewed Assessment/Plan 88 year old female with PMH HTN, ulcerative colitis, recent MOHS surgery L ankle presented to ED for right hip pain, pelvic pain and and right shoulder pain s/p fall xrays and CT c/w pelvic fractures; Xrays R shoulder no fracture; ortho and PT rehab f/u ortho and neurology f/u pain meds prn d/w pt and niece possible opaites SE ad risks stools softeners to prevent constipation DVT pfx - SCDs, no sq heparin for now, CT c/w large pelvic hematoma; anemia s/p PRBC; d/w pt and niece risks of bleeding with sq heparin and risks PE DVT without heparin; vascular surgery f/u; eval / thickened bladder on CT r/o CA - will need f/u after DC home (but to be done within 1-2 months time sensitive condition d/w pt and niece); cystogram now r/o bladder puncture ovarian cyst needs [employer] eval r/o CA dw pt and niece; can be done outpt (but to be done within 1-2 months time sensitive condition d/w pt and niece) pt still frustrated said she can not get OOB or sit up to urinate - will order Puente, d/w pt possible UTI with it; will need PT rehab and SNF d/w CM d/w pt, staff, pt's niece and pt's PCP t time 40 min
[2019-08-01] MEDS: ACETAMINOPHEN 325 MG TABLET (FP) PO PRN ×2 (09:59→18:13)
[2019-08-01] MEDS: amLODIPine BESYLATE 5 MG TABLET (FP) PO SCH (09:59)
[2019-08-01] MEDS: POLYETHYLENE GLYCOL 3350 119 GM BTL PO SCH (10:00)
[2019-08-01] MEDS: DOCUSATE SODIUM 100 MG CAPSULE (FP) PO SCH (10:01)
[2019-08-01 11:42] LABS: BASO % 0.2 % (0-2.0); EOS % 0.6 % (0-4.5); HEMOGLOBIN 7.7 GM/dL (10.7-15.3); LYMPH % 12.1 % (8-40); MCH 30.6 pg (25.7-33.7); MCHC 33.3 g/dl (32.0-36.0); MEAN CELL VOLUME 91.7 fl (80-96); MEAN PLT VOLUME 11.7 fl (7.5-11.1); MONO % 9.8 % (3.8-10.2); NEUT % 77.3 % (42.8-82.8); PLATELET COUNT 125 K/MM3 (134-434); WHITE BLOOD COUNT 6.4 K/mm3 (4.0-10.0)
[2019-08-01 12:04] LABS: BLOOD UREA NITROGEN 19.7 mg/dL (7-18); CALCIUM 8.1 mg/dL (8.5-10.1); CREATININE 0.6 mg/dL (0.55-1.3); POTASSIUM 4.2 mmol/L (3.5-5.1)
--- NOTE | 2019-08-01 12:04 | PN ---
Progress Note (short form) - Note Progress Note: Vascular Surgery Pt seen and examined today. CT shows right pelvic fracture with hematoma from the trauma. Ortho on case and no intervention needed. No need to drain hematoma. Today H/H is 03/15. Please transfuse pt PRBC's. Ortho follow up Tamir Alexis DO
--- NOTE | 2019-08-01 13:18 | CON.GU ---
Consult Consult Specialty:: Referred by:: Medicine Reason for Consultation:: pelvic fracture, hematuria, urinary retention - History of Present Illness Chief Complaint: pelvic fracture, hematuria, urinary retention History of Present Illness: 88 yo female, nulliparous, who presented to the ER after a trip and fall. She has pelvic fractures and a large pelvic hematoma. She denies any previous urinary complaints. She is very active and lives alone. She reports that since the fall she has been unable to sit on a toilet because of her pain and therefore is unable to urinate, CT also reveals a moderate amount of constipation. She has a hyde cath in place with clear output. She has started physical therapy but has been limited because of her pain. - History Source History Provided By: Patient Limitations to Obtaining History: No Limitations - Past Medical History Cardio/Vascular: Yes: HTN Pulmonary: No: Asthma, Bronchitis, Cancer, COPD, O2 Dependent, Pneumonia, Previously Intubated, Pulmonary Embolus, Pulmonary Fibrosis, Sleep Apnea, Other Gastrointestinal: No: Ascites, Cancer, Constipation, Crohn's Disease, Diverticulitis, Diverticulosis, Esophageal Varices, Gastritis, GERD, GI Bleed, Hemorrhoids, Hiatal Hernia, Inflamatory Bowel Disease, Irritable Bowel Disease, Pancreatitis, Peptic Ulcer Disease, Ulcerative Colitis, Other Hepatobiliary: No: Cirrhosis, Cholelithiasis, Cholecystitis, Choledocholithiasis , Hepatitis A, Hepatitis B, Hepatitis C, Other Renal/: No: Renal Failure, Renal Inusuff, BPH, Cancer, Hematuria, Hemodialysis , Neurogenic Bladder, Renal Calculi, UTI, Other ...: No Infectious Disease: No: AIDS, C-Diff, Herpes Zoster, HIV, MRSA, STD's, Tuberculosis, VREF, Other Psych: No: Addictions, Anxiety, Bipolar, Depression, Panic, Psychosis, Schizophrenia, Other Musculoskeletal: No: Bursitis, Chronic low back pain, Hemiparesis, Hemiplegia, Osteoarthritis, Paraplegia, Other Rheumatology: No: Fibromyalgia, Gout, Lupus, Rheumatoid Arthritis, Sarcoidosis, Vasculitis, Other ENT: No: Allergic Rhinitis, Sinusitis, Other Endocrine: No: Bertie's Disease, Addison's Disease, Diabetes Insipidus, Diabetes Mellitus, Hyperparathyroidism, Hyperthyroidism, Hypothyroidism, Osteopenia, SIADH, Other - Past Surgical History Additional Surgical History: ankle surgery - Alcohol/Substance Use Hx Alcohol Use: No - Smoking History Smoking history: Never smoked Have you smoked in the past 12 months: No - Social History History of Recent Travel: No Home Medications - Allergies Allergies/Adverse Reactions: Allergies Allergy/AdvReac Type Severity Reaction Status Date / Time amoxicillin Allergy Verified 07/30/19 15:15 aspirin Allergy Verified 07/30/19 15:15 ibuprofen [From Advil] Allergy Verified 07/30/19 15:15 lidocaine Allergy Verified 07/30/19 15:15 - Home Medications Home Medications: Ambulatory Orders Amlodipine Besylate 5 mg PO DAILY 12/21/15 Review of Systems - Review of Systems Genitourinary: reports: No Symptoms Physical Exam- Vital Signs: Vital Signs Temperature 98.0 F 08/01/19 10:00 Pulse Rate 77 08/01/19 10:00 Respiratory Rate 20 08/01/19 10:00 Blood Pressure 133/67 08/01/19 10:00 O2 Sat by Pulse Oximetry (%) 96 08/01/19 09:00 Gastrointestinal: Yes: Soft Renal/: Yes: Hyde Present. No: Bladder Distention, CVA Tenderness - Left, CVA Tenderness - Right, Hematuria, Incontinence Labs: CBC, BMP 08/01/19 11:10 08/01/19 11:10 Imaging - Results Cat Scan: Report Reviewed Problem List - Problems (1) Hematuria Assessment/Plan: patient is mircoheme, a pelvic fracture and a large pelvic hematoma. Cystogram is recommended as a trauma work up. Code(s): R31.9 - HEMATURIA, UNSPECIFIED (2) Urinary retention Assessment/Plan: retention is due to a combination of her fecal impaction, her difficulty sitting on the toilet and the pelvic hematoma compressing her bladder. Maintain the hyde for now. recommend agressive bowel management. flomax. Once she is defacating, is more ambulatory can remove the catheter and offer a trial of void Code(s): R33.9 - RETENTION OF URINE, UNSPECIFIED (3) Fecal impaction Code(s): K56.41 - FECAL IMPACTION
--- NOTE | 2019-08-01 15:31 | HOL ---
Hook-up date: 2019-07-31 14:00:00 Duration: 23:43:00 Test Indications: FALL R/O ARRHYTHMIA Medications: 349261 QRS complexes 1 Ventricular ectopics which represent <1 % of total QRS comp. 40 Supraventricular ectopics which represent <1 % of total QRS comp. * Paced QRS complexs which represent % of total QRS comp. * % of Time Classified as Noise VENTRICULAR ECTOPY 1 Isolated 0 Bigeminal Cycles 0 Couplets 0 Runs 0 Beats in Runs * Beats LONGEST at * BPM at :: -- * Beats FASTEST at * BPM at :: -- SUPRAVENTRICULAR ECTOPY 26 Isolated 0 Couplets 1 Runs 14 Beats in Runs 14 Beats LONGEST at 160 BPM at 19:33:54 2019-07-31 14 Beats FASTEST at 160 BPM at 19:33:54 2019-07-31 HEART RATES 57 MIN at 05:21:01 2019-08-01 73 AVG 100 MAX at 11:00:34 2019-08-01 LONGEST RR 1.224 secs at 05:20:56 2019-08-01 SCANNED BY HANY BOOKER ON 08/01/19 1. BASELINE RHYTHM IS SINUS WITH AVERAGE HR OF 73 BPM. RATES VARIED FROM 57 TO 100 BPM. 2. RARE PVC 3. OCCASIONAL ATRIAL ECTOPIES. 14 BEAT RUN OF NSSVT IS SEEN WITH A RATE OF [address]-T ABNORMALITIES 5. DIARY WAS NOT SUBMITTED Confirmed by DELBERT AGGARWAL, MELI ([id number]) on 08/01/2019 3:31:05 PM Referred By: DOUG CORNELIUS DR Overread By: MELI MANDUJANO MD
--- NOTE | 2019-08-01 16:37 | PN ---
Progress Note (short form) - Note Progress Note: s: no cp sob palps dizzy Current Medications Generic Name Dose Route Start Last Admin Trade Name Freq PRN Reason Stop Dose Admin Acetaminophen 650 mg 07/31/19 01:43 08/01/19 09:59 Tylenol - PO 650 mg Q6H PRN Administration PAIN LEVEL 1-5 Amlodipine Besylate 5 mg 07/31/19 10:00 08/01/19 09:59 Norvasc - PO 5 mg DAILY [facility] Administration Docusate Sodium 100 mg 07/31/19 11:15 08/01/19 10:01 Colace - PO 100 mg DAILY [facility] Administration Sodium Chloride 1,000 mls @ 42 mls/hr 07/31/19 01:45 08/01/19 06:31 Normal Saline - IV 42 mls/hr ASDIR [facility] Administration Oxycodone HCl 5 mg 07/31/19 11:00 08/01/19 09:59 Roxicodone - PO 5 mg Q6H PRN Administration PAIN LEVEL 7 - 10 Polyethylene Glycol 17 gm 07/31/19 11:00 08/01/19 10:00 Miralax (For Daily Use) - PO 17 gm DAILY [facility] Administration Vital Signs Period Temp Pulse Resp BP Sys/Resendez Pulse Ox Last 24 Hr 97.9 F-98.9 F 71-80 20-20 124-133/51-68 96 Constitutional: Yes: No Distress, Calm Eyes: Yes: Conjunctiva Clear Respiratory: Yes: CTA Bilaterally Gastrointestinal: Yes: Soft Cardiovascular: Yes: Regular Rate and Rhythm JVD: No Carotid Bruit: No PMI: Non-Displaced Heart Sounds: Yes: S1, S2 (rrr, no murmurs) Edema: No Peripheral Pulses WNL: Yes Neurological: Yes: Alert, Oriented CBC, BMP 08/01/19 11:10 08/01/19 11:10 Echo: Pending Imaging - Results X-ray: Report Reviewed Cat Scan: Report Reviewed EKG: Image Reviewed (NSR 70s, LAE, NSST) Assessment/Plan IMP: Mechanical fall Pelvic fx Chronic HTN REC: 1. Continue home BP meds 2. Check orthostatics 3. Echo and holter pending: doubt arrhythmia in this case, fall sounds purely mechanical 5. Management fx as outlined by ortho 6. DVT prophylaxis
--- NOTE | 2019-08-01 18:47 | CONSULT ---
Consult - text type - Consultation Consultation Note: ORTHOPEDIC SURGERY CONSULTATION NOTE Department of Orthopedic Surgery HISTORY OF PRESENT ILLNESS Ms. Guillen is an 88 year old female with pmhx significant for HTN, ulcerative colitis, recent left ankle MOHS surgery who presents [facility] after a mechanical fall. I was called as a second opinion for a pubic rami fracture. The injury occurred after a mechanical fall. The patient notes pain of the right shoulder, as well as her pelvic region. She has pain with movement of her shoulder and her lower extremities. The patient is being treated for rotator cuff injury as an outpatient. Denies any other injuries. Denies numbness, tingling or other constitutional complaints. The patient lives alone and uses no assistive devices at baseline. FAMILY HISTORY non-contributory REVIEW OF SYMPTOMS A twelve-point review of systems was performed and was negative except as noted in HPI. PHYSICAL EXAM Constitutional: Alert and oriented to person, place, and time. Appears well- developed and well-nourished. No acute distress, appropriate mood and affect. Right Upper Extremity: Skin warm, dry, and intact; no lesions, rashes or ulcers noted. Muscle mass equal and symmetric to contralateral side. No atrophy noted. No masses or effusions noted. Tender to palpation at right greater tuberosity; nontender throughout rest of extremity. Full active and passive ROM elbow, wrist and hand, free from pain. Shoulder LROM; able to IR/ER actively. Full PROM shoulder, with mild pain. Joints stable with no pathologic laxity. M/R/U/ MSK/AX motor intact; SILT distally; 2+ radial pulses; Cap refill brisk. Tone and reflexes normal. Left Upper Extremity: Skin warm, dry, and intact; no lesions, rashes or ulcers noted. Muscle mass equal and symmetric to contralateral side. Left elbow skin discoloration and atrophy. No atrophy noted. No masses or effusions noted. Tenderness to palpation left extensor tendon origin; nontender throughout rest of extremity. Full passive and active ROM, free from pain. Joints stable with no pathologic laxity. M/R/U/MSK/AX motor intact; SILT distally; 2+ radial pulses ; Cap refill brisk. Tone and reflexes normal. Right Lower Extremity: Skin warm, dry, and intact; no lesions, rashes or ulcers noted. Muscle mass equal and symmetric to contralateral side. No atrophy noted. No masses or effusions noted. Tender to palpation at pubic symphysis and ishium ; nontender throughout rest of extremity. No cords or calf tenderness; No significant calf/ankle edema. Full passive and active ROM, free from pain. Joints stable with no pathologic laxity. EHL/TA/GS motor intact; SILT distally; 2+ DP pulses; Cap refill brisk. Tone and reflexes normal. Difficulty with SLR; Negative log roll. Left Lower Extremity: Skin sutures left ankle. Muscle mass equal and symmetric to contralateral side. No atrophy noted. No masses or effusions noted. No tenderness to palpation. No cords or calf tenderness. No significant calf/ankle edema. Full passive and active ROM, free from pain. Joints stable with no pathologic laxity. EHL/TA/GS motor intact; SILT distally; 2+ DP pulses; Cap refill brisk. Tone and reflexes normal. Able to SLR, with pain on the right side , and negative log roll. Active Problems Problem Status Category Onset Fecal impaction Acute Medical Fracture of pubic ramus Acute Medical Hematuria Acute Medical Hip pain Acute Medical Urinary retention Acute Medical Past Medical History Cardio/Vascular HTN Pulmonary Gastrointestinal Hepatobiliary Renal/ Heme/Onc Infectious Disease Psych Rheumatology ENT Endocrine Social History Smoking history Never smoked Hx Alcohol Use No History of Recent Travel No Allergies Allergy/AdvReac Type Severity Reaction Status Date / Time amoxicillin Allergy Verified 07/30/19 15:15 aspirin Allergy Verified 07/30/19 15:15 ibuprofen [From Advil] Allergy Verified 07/30/19 15:15 lidocaine Allergy Verified 07/30/19 15:15 Active Medications Generic Name Dose Route Start Last Admin Trade Name Freq PRN Reason Stop Dose Admin Acetaminophen 650 mg 07/31/19 01:43 08/01/19 18:13 Tylenol - PO 650 mg Q6H PRN Administration PAIN LEVEL 1-5 Amlodipine Besylate 5 mg 07/31/19 10:00 08/01/19 09:59 Norvasc - PO 5 mg DAILY [facility] Administration Docusate Sodium 100 mg 07/31/19 11:15 08/01/19 10:01 Colace - PO 100 mg DAILY [facility] Administration Oxycodone HCl 5 mg 07/31/19 11:00 08/01/19 18:13 Roxicodone - PO 5 mg Q6H PRN Administration PAIN LEVEL 7 - 10 Polyethylene Glycol 17 gm 07/31/19 11:00 08/01/19 10:00 Miralax (For Daily Use) - PO 17 gm DAILY [facility] Administration Vital Signs (last) Temp Pulse Resp BP Pulse Ox 97.9 F 73 20 124/54 L 96 08/01/19 15:01 08/01/19 15:01 08/01/19 15:01 08/01/19 15:01 08/01/19 09:00 Intake and Output 07/30/19 07/31/19 08/01/19 23:59 23:59 23:59 Intake Total 626 420 Output Total 1900 200 Balance -1274 220 Intake: IV 126 420 Normal Saline - 1,000 ml 126 420 @ 42 mls/hr IV ASDIR [facility] Rx#:[id number] Oral 500 Output: Urine 1900 200 Puente 1900 200 Other: Voiding Method Indwelling Catheter Indwelling Catheter Bowel Movement No No Weight 134 lb 135 lb Height 5 ft 3 in 5 ft 3 in Body Mass Index (BMI) 23.7 23.9 Weight Measurement Method Built in [facility] 08/01/19 11:10 08/01/19 11:10 PT with INR 12.60 SEC (9.7-13.0) 07/30/19 18:25 PTT (Actin FS) 29.7 SECONDS (25.2-36.5) 07/30/19 18:25 IMAGING I personally reviewed all radiographs, CT, and other imaging. They demonstrate a superior and inferior pubic rami fracture with surrounding hematoma, and a sacral ala fracture. ASSESSMENT AND PLAN Karolina Guillen is an 88 year old female is/p fall with a right superior / inferior pubic rami fracture with a sacral ala fracture, with corresponding hematoma. She also has a right shoulder rotator cuff dysfunction. We have reviewed the imaging and clinical findings in detail, as well as their potential implications. After examining the patient and reviewing the chart and imaging, I agree with the previous orthopedic surgeon's evaluation and plan. - F/U AM labs; transfuse as needed or recommended by vascular / medical teams - Physical therapy daily; recommend pain medication before session; WBAT - Pain control: minimize narcotic use - DVT prophylaxis as per medicine - Ice right shoulder - Elevate HOB, encourage oral intake - Appreciate medical management - recommend bowel regimen - Vascular consult appreciated - Nutrition optimization, decubitus precautions heel/sacrum - No orthopedic surgical intervention
--- NOTE | 2019-08-01 18:50 | PN ---
Progress Note (short form) - Note Progress Note: ORTHOPEDIC SURGERY PROGRESS NOTE Department of Orthopedic Surgery SUBJECTIVE No acute events overnight. No complaints currently. Denies chest pain, shortness of breath, or calf pain. No nausea or vomiting. Tolerating oral intake. Pain control improving. PHYSICAL EXAMINATION General: Alert, oriented, cooperative and no distress. Upper Extremity: Skin intact, no lesions, rashes or ulcers noted. Muscle mass equal and symmetric to contralateral side. No atrophy noted. No masses or effusions noted. Tender at left elbow lateral epicondyle. Right shoulder ROM improving. Full passive and active ROM elbow, wrist and hand, free from pain. M/ R/U/MSK/AX motor intact; SILT distally; 2+ radial pulses; Cap refill brisk. Lower Extremity: Skin intact, no lesions, rashes or ulcers noted. Muscle mass equal and symmetric to contralateral side. No atrophy noted. No masses or effusions noted. No tenderness to palpation. Full passive and ROM, free from pain. AROM right hip limited secondary to pain. EHL/TA/GS motor intact; SILT distally; 2+ DP pulses; Cap refill brisk. DVT Exam: No evidence of DVT seen on physical exam; No cords or calf tenderness ; No significant calf/ankle edema. Intake & Output 07/30/19 07/31/19 08/01/19 23:59 23:59 23:59 Intake Total 626 Output Total 1900 200 Balance -1274 -200 Intake: IV 126 Normal Saline - 1,000 ml 126 @ 42 mls/hr IV ASDIR [facility] Rx#:[id number] Oral 500 Output: Urine 1900 200 Puente 1900 200 Other: Voiding Method Indwelling Catheter Indwelling Catheter Bowel Movement No No Weight 134 lb 135 lb Height 5 ft 3 in 5 ft 3 in Body Mass Index (BMI) 23.7 23.9 Weight Measurement Method Built in [facility] Active Medications Generic Name Dose Route Start Last Admin Trade Name Freq PRN Reason Stop Dose Admin Acetaminophen 650 mg 07/31/19 01:43 08/01/19 18:13 Tylenol - PO 650 mg Q6H PRN Administration PAIN LEVEL 1-5 Amlodipine Besylate 5 mg 07/31/19 10:00 08/01/19 09:59 Norvasc - PO 5 mg DAILY [facility] Administration Docusate Sodium 100 mg 07/31/19 11:15 08/01/19 10:01 Colace - PO 100 mg DAILY [facility] Administration Oxycodone HCl 5 mg 07/31/19 11:00 08/01/19 18:13 Roxicodone - PO 5 mg Q6H PRN Administration PAIN LEVEL 7 - 10 Polyethylene Glycol 17 gm 07/31/19 11:00 08/01/19 10:00 Miralax (For Daily Use) - PO 17 gm DAILY [facility] Administration Vital Signs (last) Temp Pulse Resp BP Pulse Ox 97.9 F 73 20 124/54 L 96 08/01/19 15:01 08/01/19 15:01 08/01/19 15:01 08/01/19 15:01 08/01/19 09:00 Laboratory (coagulation) PT with INR 12.60 SEC (9.7-13.0) 07/30/19 18:25 Laboratory 08/01/19 11:10 08/01/19 11:10 ASSESSMENT AND PLAN Karolina Guillen is an 88 year old female with a right-sided lateral compression type I injury. She also has right shoulder rotator cuff dysfunction and left elbow lateral epicondylitis. - No orthopedic intervention at this time - Monitor H/H; transfuse as necessary - Physical therapy; WBAT - Pain control: minimize narcotic use - DVT prophylaxis - Ice right shoulder; Right shoulder signs and symptoms improving. - Elevate HOB, encourage oral intake - Appreciate medical management - Vascular consult appreciated - Nutrition optimization, decubitus precautions heel/sacrum
[2019-08-01] MEDS: MORPHINE SULFATE 2 MG/ML VIAL IVPUSH PRN (21:06)
[2019-08-02] MEDS: MORPHINE SULFATE 2 MG/ML VIAL IVPUSH PRN ×5 (01:22→22:03)
[2019-08-02 08:44] LABS: BASO % 0.2 % (0-2.0); EOS % 1.2 % (0-4.5); HEMATOCRIT 27.7 % (32.4-45.2); HEMOGLOBIN 9.7 GM/dL (10.7-15.3); LYMPH % 11.2 % (8-40); MCH 31.2 pg (25.7-33.7); MCHC 34.9 g/dl (32.0-36.0); MEAN CELL VOLUME 89.4 fl (80-96); MEAN PLT VOLUME 11.3 fl (7.5-11.1); MONO % 10.1 % (3.8-10.2); NEUT % 77.3 % (42.8-82.8); PLATELET COUNT 105 K/MM3 (134-434); RBC 3.09 M/mm3 (3.60-5.2); RDW 14.2 % (11.6-15.6); WHITE BLOOD COUNT 5.9 K/mm3 (4.0-10.0)
[2019-08-02] MEDS: DOCUSATE SODIUM 100 MG CAPSULE (FP) PO SCH (09:36)
[2019-08-02] MEDS: amLODIPine BESYLATE 5 MG TABLET (FP) PO SCH (09:36)
[2019-08-02] MEDS: POLYETHYLENE GLYCOL 3350 119 GM BTL PO SCH (09:36)
[2019-08-02 09:48] LABS: ALBUMIN 2.8 g/dl (3.4-5.0); BILIRUBIN,TOTAL 2.8 mg/dL (0.2-1); BLOOD UREA NITROGEN 13.9 mg/dL (7-18); CALCIUM 7.8 mg/dL (8.5-10.1); CREATININE 0.5 mg/dL (0.55-1.3); TOT PROT 5.4 g/dl (6.4-8.2)
--- NOTE | 2019-08-02 11:19 | PN ---
Progress Note, Physician Chief Complaint: no CP or SOB - Current Medication List Current Medications: Active Medications Acetaminophen (Tylenol -) 650 mg PO Q6H PRN PRN Reason: PAIN LEVEL 1-5 Last Admin: 08/01/19 18:13 Dose: 650 mg Amlodipine Besylate (Norvasc -) 5 mg PO DAILY [facility] Last Admin: 08/02/19 09:36 Dose: 5 mg Docusate Sodium (Colace -) 100 mg PO DAILY [facility] Last Admin: 08/02/19 09:36 Dose: 100 mg Morphine Sulfate (Morphine Sulfate) 1 mg IVPUSH Q4H PRN PRN Reason: PAIN LEVEL 6-10 Last Admin: 08/02/19 09:54 Dose: 1 mg Polyethylene Glycol (Miralax (For Daily Use) -) 17 gm PO DAILY [facility] Last Admin: 08/02/19 09:36 Dose: 17 gm - Objective Vital Signs: Vital Signs Temperature 98.5 F 08/02/19 09:00 Pulse Rate 87 08/02/19 09:00 Respiratory Rate 20 08/02/19 09:00 Blood Pressure 138/69 08/02/19 09:00 O2 Sat by Pulse Oximetry (%) 96 08/01/19 09:00 Constitutional: Yes: No Distress, Calm Cardiovascular: Yes: Regular Rate and Rhythm Respiratory: Yes: CTA Bilaterally Gastrointestinal: Yes: Soft (nt) Edema: No Neurological: Yes: Alert, Oriented ...Motor Strength: WNL Labs: CBC, BMP 08/02/19 07:05 08/02/19 07:05 INR, PTT INR 1.07 (0.83-1.09) 07/30/19 18:25 Laboratory Tests 08/01/19 08/02/19 08/02/19 11:10 07:05 07:05 WBC 5.9 Hgb 9.7 L Plt Count 105 L Sodium 130 L Potassium 4.0 Creatinine 0.5 L Troponin I < 0.02 Assessment/Plan Assessment/Plan IMP: Mechanical fall Pelvic fx Chronic HTN REC: 1. Continue home BP meds 2. Check orthostatics 3. Echo pending report; Holter with 14 beat of PSVT at 160bpm, self limited. Unlikely cause of fall. Recommend extended outpatient holter to better assess SVT burden prior to any decisions re chronic B-Michael therapy. 5. Management fx as outlined by ortho 6. DVT prophylaxis
--- NOTE | 2019-08-02 14:17 | PN ---
Progress Note, Physician Chief Complaint: in bed not better still in pain; asked to go back to IV morphine no BM yet anxious, upset; d/w pt's niece she mentioned pt used to be in [employer] for anxiety and depression and worked well for her before, will restart it consults tests and meds d/w pt at [facility] - Current Medication List Current Medications: Active Medications Acetaminophen (Tylenol -) 650 mg PO Q6H PRN PRN Reason: PAIN LEVEL 1-5 Last Admin: 08/01/19 18:13 Dose: 650 mg Amlodipine Besylate (Norvasc -) 5 mg PO DAILY [facility] Last Admin: 08/02/19 09:36 Dose: 5 mg Docusate Sodium (Colace -) 100 mg PO DAILY [facility] Last Admin: 08/02/19 09:36 Dose: 100 mg Morphine Sulfate (Morphine Sulfate) 2 mg IVPUSH Q4H PRN PRN Reason: PAIN LEVEL 6-10 Last Admin: 08/02/19 13:54 Dose: 2 mg Polyethylene Glycol (Miralax (For Daily Use) -) 17 gm PO DAILY [facility] Last Admin: 08/02/19 09:36 Dose: 17 gm - Objective Vital Signs: Vital Signs Temperature 98.5 F 08/02/19 09:00 Pulse Rate 87 08/02/19 09:00 Respiratory Rate 20 08/02/19 09:00 Blood Pressure 138/69 08/02/19 09:00 O2 Sat by Pulse Oximetry (%) 98 08/02/19 09:00 Constitutional: Yes: No Distress, Anxious Eyes: Yes: Conjunctiva Clear HENT: Yes: Atraumatic Neck: Yes: Supple Cardiovascular: Yes: Regular Rate and Rhythm Respiratory: Yes: CTA Bilaterally Gastrointestinal: Yes: Soft. No: Tenderness Genitourinary: Yes: Puente Present. No: Hematuria Extremities: No: Cold, Cool, Cyanosis Edema: No Integumentary: No: Erythema, Petechiae, Pressure Ulcer, Rash Neurological: Yes: Alert, Oriented ...Motor Strength: WNL Psychiatric: Yes: Alert, Oriented. No: Agitated, Suicidal Ideation Labs: CBC, BMP 08/02/19 07:05 08/02/19 07:05 INR, PTT INR 1.07 (0.83-1.09) 07/30/19 18:25 - ....Imaging Other: Report Reviewed Assessment/Plan 88 year old female with PMH HTN, ulcerative colitis, recent MOHS surgery L ankle presented to ED for right hip pain, pelvic pain and and right shoulder pain s/p fall xrays and CT c/w pelvic fractures; Xrays R shoulder no fracture; ortho and PT rehab f/u ortho and neurology f/u labs stable after PRBC; Na 130 mosdt likely pain Siadh f/u labs pain meds prn d/w pt and niece possible opiates SE ad risks stools softeners to prevent constipation DVT pfx - SCDs, no sq heparin for now, CT c/w large pelvic hematoma; anemia s/p PRBC; d/w pt and niece risks of bleeding with sq heparin and risks PE DVT without heparin; vascular surgery f/u; eval / thickened bladder on CT r/o CA - will need f/u after DC home (but to be done within 1-2 months time sensitive condition d/w pt and niece); cystogram now r/o bladder puncture still pending d/w ovarian cyst needs 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
[2019-08-02] MEDS: ESCITALOPRAM OXALATE 10 MG TABLET (FP) PO SCH (16:48)
[2019-08-03] MEDS: MORPHINE SULFATE 2 MG/ML VIAL IVPUSH PRN ×3 (07:04→20:45)
--- NOTE | 2019-08-03 08:24 | PN ---
Progress Note, Physician Chief Complaint: in bed pain on/off; no BM will add MOM and prune juice pt said she used to take mesalamine NV will order; also she asked for Ca+D, vit C (used to take them at home) cystogram supposed to be done twice but pt refused said she had too much pain, d /w pt will premedicate and do it today d/w ortho dr Anders to remove L ankle sutures today (s/p skin CA excision 10 days ago outpt by derm, per pt she was told sutures could be removed; selena carranza does not come to [facility]) d.w pt risks decubs with prolonged bed immobilization; advised to cooperate with PT and try to change position in bed frequently she understands and will try - Current Medication List Current Medications: Active Medications Acetaminophen (Tylenol -) 650 mg PO Q6H PRN PRN Reason: PAIN LEVEL 1-5 Last Admin: 08/01/19 18:13 Dose: 650 mg Amlodipine Besylate (Norvasc -) 5 mg PO DAILY [facility] Last Admin: 08/02/19 09:36 Dose: 5 mg Docusate Sodium (Colace -) 100 mg PO DAILY [facility] Last Admin: 08/02/19 09:36 Dose: 100 mg Escitalopram Oxalate (Lexapro -) 5 mg PO DAILY [facility] Last Admin: 08/02/19 16:48 Dose: Not Given Morphine Sulfate (Morphine Sulfate) 2 mg IVPUSH Q4H PRN PRN Reason: PAIN LEVEL 6-10 Last Admin: 08/03/19 07:04 Dose: 2 mg Polyethylene Glycol (Miralax (For Daily Use) -) 17 gm PO DAILY [facility] Last Admin: 08/02/19 09:36 Dose: 17 gm - Objective Vital Signs: Vital Signs Temperature 98.7 F 08/03/19 05:39 Pulse Rate 77 08/03/19 05:39 Respiratory Rate 20 08/03/19 05:39 Blood Pressure 138/59 L 08/03/19 05:39 O2 Sat by Pulse Oximetry (%) 98 08/02/19 09:00 Constitutional: Yes: No Distress, Anxious Eyes: Yes: Conjunctiva Clear HENT: Yes: Atraumatic Neck: Yes: Supple Cardiovascular: Yes: Regular Rate and Rhythm Respiratory: Yes: CTA Bilaterally Gastrointestinal: Yes: Soft. No: Tenderness Genitourinary: Yes: Puente Present. No: Hematuria Musculoskeletal: No: Joint Stiffness, Joint Swelling Extremities: No: Cold, Cool, Cyanosis Edema: No Integumentary: No: Pressure Ulcer, Rash, Venous Stasis Changes Neurological: Yes: Alert, Oriented ...Motor Strength: WNL Psychiatric: Yes: Alert, Oriented. No: Agitated, Suicidal Ideation Labs: CBC, BMP 08/02/19 07:05 08/02/19 07:05 INR, PTT INR 1.07 (0.83-1.09) 07/30/19 18:25 - ....Imaging Other: Report Reviewed Assessment/Plan 88 year old female with PMH HTN, ulcerative colitis, recent MOHS surgery L ankle presented to ED for right hip pain, pelvic pain and and right shoulder pain s/p fall xrays and CT c/w pelvic fractures; Xrays R shoulder no fracture; ortho and PT rehab f/u ortho and neurology f/u labs stable after PRBC; Na 130 most likely pain Siadh f/u labs pain meds prn d/w pt and niece possible opiates SE ad risks stools softeners to prevent constipation add mesalamine NV DVT pfx - SCDs, no sq heparin for now, CT c/w large pelvic hematoma; anemia s/p PRBC; d/w pt and niece risks of bleeding with sq heparin and risks PE DVT without heparin; vascular surgery f/u; eval / thickened bladder on CT r/o CA - will need f/u after DC home (but to be done within 1-2 months time sensitive condition d/w pt and niece); cystogram now r/o bladder puncture still pending d/w ovarian cyst 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
[2019-08-03 09:34] LABS: BASO % 0.2 % (0-2.0); HEMATOCRIT 28.7 % (32.4-45.2); LYMPH % 12.9 % (8-40); MCH 31.3 pg (25.7-33.7); MCHC 34.8 g/dl (32.0-36.0); MEAN PLT VOLUME 10.6 fl (7.5-11.1); MONO % 10.3 % (3.8-10.2); NEUT % 74.6 % (42.8-82.8); PLATELET COUNT 138 K/MM3 (134-434); RBC 3.19 M/mm3 (3.60-5.2); WHITE BLOOD COUNT 6.2 K/mm3 (4.0-10.0)
[2019-08-03] MEDS: DOCUSATE SODIUM 100 MG CAPSULE (FP) PO SCH (09:53)
[2019-08-03] MEDS: amLODIPine BESYLATE 5 MG TABLET (FP) PO SCH (09:53)
[2019-08-03] MEDS: ESCITALOPRAM OXALATE 10 MG TABLET (FP) PO SCH (09:54)
[2019-08-03] MEDS: POLYETHYLENE GLYCOL 3350 119 GM BTL PO SCH (09:56)
[2019-08-03 10:23] LABS: BLOOD UREA NITROGEN 14.4 mg/dL (7-18); CALCIUM 8.3 mg/dL (8.5-10.1); CREATININE 0.6 mg/dL (0.55-1.3); POTASSIUM 4.1 mmol/L (3.5-5.1)
--- NOTE | 2019-08-03 11:01 | PN ---
Progress Note (short form) - Note Progress Note: still awaiting Radiology to do the cystotgram to rule out bladder extravasation. Once that is done and is negative discharge can be executed. Test was ordered on 08/01/19 and reordered twice oin 08/02/19 Problem List - Problems (1) Hematuria Code(s): R31.9 - HEMATURIA, UNSPECIFIED (2) Urinary retention Code(s): R33.9 - RETENTION OF URINE, UNSPECIFIED (3) Fecal impaction Code(s): K56.41 - FECAL IMPACTION
[2019-08-03] MEDS ORDERED: MAGNESIUM HYDROX 2400MG/30ML ORAL SUSPENSION 30 ML CUP PO PRN (11:45)
[2019-08-03] MEDS ORDERED: MESALAMINE 1000 MG/SUPP.RECT SUPP RC SCH (11:45)
--- NOTE | 2019-08-03 13:45 | PN ---
Progress Note (short form) - Note Progress Note: ORTHOPEDIC SURGERY PROGRESS NOTE Department of Orthopedic Surgery SUBJECTIVE No acute events overnight. No new complaints. Denies chest pain, shortness of breath, or calf pain. No nausea or vomiting. Tolerating oral intake. Pain control improving. PHYSICAL EXAMINATION General: Alert, oriented, cooperative and no distress. Upper Extremity: Skin intact, no lesions, rashes or ulcers noted. Muscle mass equal and symmetric to contralateral side. No atrophy noted. No masses or effusions noted. Tender at left elbow lateral epicondyle. Right shoulder ROM improving. Full passive and active ROM elbow, wrist and hand, free from pain. M/ R/U/MSK/AX motor intact; SILT distally; 2+ radial pulses; Cap refill brisk. Lower Extremity: Skin intact, no lesions, rashes or ulcers noted. Muscle mass equal and symmetric to contralateral side. No atrophy noted. No masses or effusions noted. No tenderness to palpation. Full passive and ROM, free from pain. AROM right hip limited secondary to pain. EHL/TA/GS motor intact; SILT distally; 2+ DP pulses; Cap refill brisk. DVT Exam: No evidence of DVT seen on physical exam; No cords or calf tenderness ; No significant calf/ankle edema. Intake & Output 08/01/19 08/02/19 08/03/19 23:59 23:59 23:59 Intake Total 420 660 460 Output Total 200 3400 1200 Balance 220 -9180 -740 Intake: IV 420 Normal Saline - 1,000 ml 420 @ 42 mls/hr IV ASDIR DALY Rx#:[id number] Oral 660 460 Output: Urine 200 3400 1200 Puente 200 3400 1200 Other: Voiding Method Indwelling Catheter Indwelling Catheter Indwelling Catheter Bowel Movement No No Active Medications Generic Name Dose Route Start Last Admin Trade Name Freq PRN Reason Stop Dose Admin Acetaminophen 650 mg 07/31/19 01:43 08/01/19 18:13 Tylenol - PO 650 mg Q6H PRN Administration PAIN LEVEL 1-5 Amlodipine Besylate 5 mg 07/31/19 10:00 08/03/19 09:53 Norvasc - PO 5 mg DAILY [facility] Administration Ascorbic Acid 500 mg 08/03/19 11:45 Vitamin C - PO DAILY [facility] Calcium Carbonate 500 mg 08/03/19 11:45 Os-Nixon 500mg - PO DAILY DALY Cholecalciferol 1,000 unit 08/03/19 11:45 Vitamin D3 - PO DAILY [facility] Docusate Sodium 100 mg 07/31/19 11:15 08/03/19 09:53 Colace - PO 100 mg DAILY [facility] Administration Escitalopram Oxalate 5 mg 08/02/19 15:00 08/03/19 09:54 Lexapro - PO 5 mg DAILY [facility] Administration Magnesium Hydroxide 30 ml 08/03/19 11:45 Milk Of Magnesia - PO Q8H PRN INDIGESTION Mesalamine 1,000 mg 08/03/19 11:45 Canasa Suppository - RC DAILY [facility] Morphine Sulfate 2 mg 08/02/19 13:38 08/03/19 07:04 Morphine Sulfate IVPUSH 2 mg Q4H PRN Administration PAIN LEVEL 6-10 Polyethylene Glycol 17 gm 07/31/19 11:00 08/03/19 09:56 Miralax (For Daily Use) - PO 17 gm DAILY [facility] Administration Vital Signs (last) Temp Pulse Resp BP Pulse Ox 98.7 F 77 20 138/59 L 98 08/03/19 05:39 08/03/19 05:39 08/03/19 05:39 08/03/19 05:39 08/02/19 09:00 Laboratory (coagulation) PT with INR 12.60 SEC (9.7-13.0) 07/30/19 18:25 Laboratory 08/03/19 08:00 08/03/19 08:00 ASSESSMENT AND PLAN Karolina Guillen is an 88 year old female with (1) a right-sided lateral compression type I pelvic fracture, (2) right shoulder rotator cuff dysfunction , and (3) left elbow lateral epicondylitis. She is hemodynamically stable. - Continue with medical management - Left ankle sutures removed (this was discussed with Dr. Bernardo who called me and requested I remove the sutures). Her left ankle was cleaned with alcohol, the sutures were removed, and the wound was dressed with steri-stips. She tolerated this well. She will need further to follow up with Dr. Bernardo for evaluation of her left ankle incision. - No orthopedic intervention - Monitor H/H; transfuse as necessary - Physical therapy; WBAT - Pain control: minimize narcotic use - DVT prophylaxis - Ice right shoulder; Right shoulder signs and symptoms improving. - Elevate HOB, encourage oral intake - Nutrition optimization, decubitus precautions heel/sacrum
--- NOTE | 2019-08-03 16:25 | CON.OBG ---
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 [place]; however has not seen her in many years. She reports a known history of fibroids, postmenopausal vaginal atrophy, for which she is using an Estring and changing Q 3 months. She will be due for a change on 08/08/2019. She denies any significant obstetric or gynecologic history; is nulliparous, denies history of STIs or abnormal pap smears. Menarche age 12.5 / Q monthly / regular flow; menopause mid- to late- 40s She has not had any bleeding since using the Estring. She denies any vaginal discharge or odor - Past Medical History Cardio/Vascular: Yes: HTN Pulmonary: No: Asthma, Bronchitis, Cancer, COPD, O2 Dependent, Pneumonia, Previously Intubated, Pulmonary Embolus, Pulmonary Fibrosis, Sleep Apnea, Other Gastrointestinal: No: Ascites, Cancer, Constipation, Crohn's Disease, Diverticulitis, Diverticulosis, Esophageal Varices, Gastritis, GERD, GI Bleed, Hemorrhoids, Hiatal Hernia, Inflamatory Bowel Disease, Irritable Bowel Disease, Pancreatitis, Peptic Ulcer Disease, Ulcerative Colitis, Other Hepatobiliary: No: Cirrhosis, Cholelithiasis, Cholecystitis, Choledocholithiasis , Hepatitis A, Hepatitis B, Hepatitis C, Other Renal/: No: Renal Failure, Renal Inusuff, BPH, Cancer, Hematuria, Hemodialysis , Neurogenic Bladder, Renal Calculi, UTI, Other ...: No Infectious Disease: No: AIDS, C-Diff, Herpes Zoster, HIV, MRSA, STD's, Tuberculosis, VREF, Other Psych: No: Addictions, Anxiety, Bipolar, Depression, Panic, Psychosis, Schizophrenia, Other Musculoskeletal: No: Bursitis, Chronic low back pain, Hemiparesis, Hemiplegia, Osteoarthritis, Paraplegia, Other Rheumatology: No: Fibromyalgia, Gout, Lupus, Rheumatoid Arthritis, Sarcoidosis, Vasculitis, Other ENT: No: Allergic Rhinitis, Sinusitis, Other Endocrine: No: Ruffin's Disease, Addison's Disease, Diabetes Insipidus, Diabetes Mellitus, Hyperparathyroidism, Hyperthyroidism, Hypothyroidism, Osteopenia, SIADH, Other - Past Surgical History Additional Surgical History: ankle surgery - Alcohol/Substance Use Hx Alcohol Use: No History of Substance Use: reports: None - Smoking History Smoking history: Never smoked Have you smoked in the past 12 months: No - Social History History of Recent Travel: No Home Medications - Allergies Allergies/Adverse Reactions: Allergies Allergy/AdvReac Type Severity Reaction Status Date / Time amoxicillin Allergy Verified 07/30/19 15:15 aspirin Allergy Verified 07/30/19 15:15 ibuprofen [From Advil] Allergy Verified 07/30/19 15:15 lidocaine Allergy Verified 07/30/19 15:15 - Home Medications Home Medications: Ambulatory Orders Amlodipine Besylate 5 mg PO DAILY 12/21/15 Review of Systems - Review of Systems Constitutional: reports: No Symptoms Cardiovascular: reports: No Symptoms Respiratory: reports: No Symptoms Musculoskeletal: reports: Other (difficulty walking secondary to pelvic fracture ) Neurological: reports: No Symptoms Psychiatric: reports: Other (Reports feeling sad when initially admitted; now feeling much happier) Physical Exam-[facility] [place] Vital Signs: Vital Signs Temperature 98.6 F 08/03/19 14:05 Pulse Rate 86 08/03/19 14:05 Respiratory Rate 20 08/03/19 05:39 Blood Pressure 150/65 08/03/19 14:05 O2 Sat by Pulse Oximetry (%) 98 08/02/19 09:00 Constitutional: Yes: No Distress, Calm Cardiovascular: Yes: Regular Rate and Rhythm Respiratory: Yes: Regular Gastrointestinal: Yes: Soft Internal Exam Deferred: Yes Vaginal Exam: Yes: Other (deferred, patient unable to tolerate vaginal exam, be placed in frog-leg position) Psychiatric: Yes: Alert, Oriented Labs: CBC, BMP 08/03/19 08:00 08/03/19 08:00 Assessment/Plan 88 yo postmenopausal woman, admitted for pelvic fracture, incidental finding of 2 cm simple ovarian cyst, currently asymptomatic Plan for ultrasound as an outpatient, encouraged follow up in 2-3 months Hx/o vaginal atrophy, patient reports well controlled with Estring, plan to change as scheduled on 08/08 Patient given postmenopausal bleeding precautions. To follow up as outpatient
[2019-08-03] MEDS: ASCORBIC ACID 500 MG TABLET (FP) PO SCH (18:49)
[2019-08-03] MEDS: CALCIUM (OYSTER SHELL) 500 MG TABLET (FP) PO SCH (18:49)
[2019-08-03] MEDS: CHOLECALCIFEROL (VIT D3) 1,000 UNIT (25 MCG) TABLET PO SCH (18:49)
[2019-08-03] MEDS: ACETAMINOPHEN 325 MG TABLET (FP) PO PRN (20:43)
[2019-08-03] MEDS: MESALAMINE 1000 MG/SUPP.RECT SUPP RC SCH (21:29)
[2019-08-04] MEDS: MORPHINE SULFATE 2 MG/ML VIAL IVPUSH PRN ×4 (03:05→20:32)
--- NOTE | 2019-08-04 08:54 | PN ---
Progress Note, Physician Chief Complaint: stable less pain cystogram no bladder extravasation no BM yet pt asked for enema - Current Medication List Current Medications: Active Medications Acetaminophen (Tylenol -) 650 mg PO Q6H PRN PRN Reason: PAIN LEVEL 1-5 Last Admin: 08/03/19 20:43 Dose: 650 mg Amlodipine Besylate (Norvasc -) 5 mg PO DAILY [facility] Last Admin: 08/03/19 09:53 Dose: 5 mg Ascorbic Acid (Vitamin C -) 500 mg PO DAILY [facility] Last Admin: 08/03/19 18:49 Dose: 500 mg Calcium Carbonate (Os-Nixon 500mg -) 500 mg PO DAILY [facility] Last Admin: 08/03/19 18:49 Dose: 500 mg Cholecalciferol (Vitamin D3 -) 1,000 unit PO DAILY [facility] Last Admin: 08/03/19 18:49 Dose: 1,000 unit Docusate Sodium (Colace -) 100 mg PO DAILY [facility] Last Admin: 08/03/19 09:53 Dose: 100 mg Escitalopram Oxalate (Lexapro -) 5 mg PO DAILY [facility] Last Admin: 08/03/19 09:54 Dose: 5 mg Magnesium Hydroxide (Milk Of Magnesia -) 30 ml PO Q8H PRN PRN Reason: INDIGESTION Mesalamine (Canasa Suppository -) 1,000 mg RC HS [facility] Last Admin: 08/03/19 21:29 Dose: 1,000 mg Morphine Sulfate (Morphine Sulfate) 2 mg IVPUSH Q4H PRN PRN Reason: PAIN LEVEL 6-10 Last Admin: 08/04/19 03:05 Dose: 2 mg Polyethylene Glycol (Miralax (For Daily Use) -) 17 gm PO DAILY [facility] Last Admin: 08/03/19 09:56 Dose: 17 gm - Objective Vital Signs: Vital Signs Temperature 98.6 F 08/04/19 05:20 Pulse Rate 70 08/04/19 05:20 Respiratory Rate 20 08/04/19 05:20 Blood Pressure 157/68 08/04/19 05:20 O2 Sat by Pulse Oximetry (%) 98 08/02/19 09:00 Constitutional: Yes: No Distress, Calm Eyes: Yes: Conjunctiva Clear HENT: Yes: Atraumatic Neck: Yes: Supple Cardiovascular: Yes: Regular Rate and Rhythm Respiratory: Yes: CTA Bilaterally Gastrointestinal: Yes: Soft. No: Tenderness Genitourinary: Yes: Puente Present. No: Hematuria Musculoskeletal: No: Joint Stiffness, Joint Swelling Extremities: No: Cold, Cool Edema: No Integumentary: No: Rash, Venous Stasis Changes Neurological: Yes: Alert, Oriented ...Motor Strength: WNL Psychiatric: Yes: Alert, Oriented. No: Agitated Labs: CBC, BMP 08/03/19 08:00 08/03/19 08:00 INR, PTT INR 1.07 (0.83-1.09) 07/30/19 18:25 - ....Imaging Other: Report Reviewed Assessment/Plan 88 year old female with PMH HTN, ulcerative colitis, recent MOHS surgery L ankle presented to ED for right hip pain, pelvic pain and and right shoulder pain s/p fall xrays and CT c/w pelvic fractures; Xrays R shoulder no fracture; ortho and PT rehab f/u labs stable after PRBC; Na 130 most likely pain Siadh f/u labs pain meds prn d/w pt and niece possible opiates SE ad risks stools softeners DVT pfx - SCDs, no sq heparin for now, CT c/w large pelvic hematoma; anemia s/p PRBC; d/w pt and niece risks of bleeding with sq heparin and risks PE DVT without heparin; vascular surgery f/u; SCDs ordered pt liked them; will d/w ortho if OK to start sq heparin in the near future 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
[2019-08-04] MEDS: ESCITALOPRAM OXALATE 10 MG TABLET (FP) PO SCH (09:14)
[2019-08-04] MEDS: ASCORBIC ACID 500 MG TABLET (FP) PO SCH (09:14)
[2019-08-04] MEDS: amLODIPine BESYLATE 5 MG TABLET (FP) PO SCH (09:14)
[2019-08-04] MEDS: CALCIUM (OYSTER SHELL) 500 MG TABLET (FP) PO SCH (09:14)
[2019-08-04] MEDS: CHOLECALCIFEROL (VIT D3) 1,000 UNIT (25 MCG) TABLET PO SCH (09:14)
[2019-08-04] MEDS: DOCUSATE SODIUM 100 MG CAPSULE (FP) PO SCH (09:14)
[2019-08-04] MEDS: POLYETHYLENE GLYCOL 3350 119 GM BTL PO SCH (10:58)
[2019-08-04] MEDS ORDERED: SODIUM PHOSPHATE/NA BIPHOS 133 ML ENEMA PR ONE (11:22)
[2019-08-04] MEDS: ACETAMINOPHEN 325 MG TABLET (FP) PO PRN ×2 (11:35→21:05)
[2019-08-04] MEDS ORDERED: PT OWN MED DRAWER 7, Y5N ONE (20:27)
[2019-08-04] MEDS: MESALAMINE 1000 MG/SUPP.RECT SUPP RC SCH (21:05)
[2019-08-05] MEDS: MORPHINE SULFATE 2 MG/ML VIAL IVPUSH PRN ×3 (03:39→15:01)
--- NOTE | 2019-08-05 06:22 | DS ---
Physical Examination Vital Signs: Vital Signs Temperature 98.9 F 08/05/19 05:33 Pulse Rate 70 08/05/19 05:33 Respiratory Rate 21 H 08/05/19 05:33 Blood Pressure 135/62 08/05/19 05:33 O2 Sat by Pulse Oximetry (%) 98 08/04/19 09:00 Findings/Remarks: had large BM; on/off pelvic pain but able to sit up and walked few steps with rehab; repeat CBC stable; started sq heparin; to f/u labs in Rehab; pt does not want Puente removed at this point - to DC Puente in rehab d/w pt and niece; OK to DC to SNF; f/u needed d/w pt and niece and d/w PCP dr Arnold Constitutional: Yes: No Distress, Calm Eyes: Yes: Conjunctiva Clear HENT: Yes: Atraumatic Neck: Yes: Supple Cardiovascular: Yes: Regular Rate and Rhythm Respiratory: Yes: CTA Bilaterally Gastrointestinal: Yes: Soft. No: Tenderness Musculoskeletal: No: Joint Stiffness, Joint Swelling Extremities: No: Calf Tenderness, Cold, Cool Edema: No Integumentary: No: Rash, Venous Stasis Changes Neurological: Yes: Alert ...Motor Strength: WNL Psychiatric: Yes: Alert. No: Agitated, Suicidal Ideation Labs: CBC, BMP 08/03/19 08:00 08/03/19 08:00 Discharge Summary Problems reviewed: Yes Reason For Visit: FRACTURE OF PELVIS, NEOPLASM OF BLADDER Current Active Problems Fecal impaction (Acute) Fracture of pubic ramus (Acute) Hematuria (Acute) Hip pain (Acute) Urinary retention (Acute) Procedures: Principal: 88 YOF admitted after mechanical fall pelvic fracture Other Procedures: Seen by ortho, no surgery, rec rehab; seen by neurology and cardiology;. pelvic CT d/w pelvic fractures also thickened Urinary bladder and ovarian cyst; seen by and MARINE RESOURCE ECONOMIST - outpt f/u;. h/o proctitis hemorrhoids and constipation; GI f/u outpt. dropped H&H after admission, heparin sq held for 6 days, transfused; H&H stable - started sq heparin - to f/u labs in Rehab Hospital Course: see above; improved but needs pain meds; seen by Rehab, able to sit and stand up , walked few steps; to go to Rehab today Condition: Guarded - Instructions Diet, Activity, Other Instructions: f/u PCP and all specialists as advised; check CBC CMP in 1 week in Rehab; PT rehab falls precautions; DVT, decubs precautions; f/u urinary retention DC Puente if possible; RTER if worse or recurrent c/o; see urology for urinary bladder f/u; see MARINE RESOURCE ECONOMIST for ovarian cyst f/u; see GI for proctitis Referrals: Vanessa Arnold MD [Staff Physician] - Stiven Mahan MD., MD [Staff Physician] - Coy Ricardo MD [Staff Physician] - Hannah Joyce MD [Staff Physician] - Canelo Sheets MD [Staff Physician] - Conor Sanchez DO [Staff Physician] - Shaji Baldwin MD [Staff Physician] - [facility]position[facility] - Home Medications Comprehensive Discharge Medication List: Ambulatory Orders Amlodipine Besylate 5 mg PO DAILY 12/21/15
[2019-08-05] MEDS: CHOLECALCIFEROL (VIT D3) 1,000 UNIT (25 MCG) TABLET PO SCH (09:51)
[2019-08-05] MEDS: DOCUSATE SODIUM 100 MG CAPSULE (FP) PO SCH (09:51)
[2019-08-05] MEDS: amLODIPine BESYLATE 5 MG TABLET (FP) PO SCH (09:51)
[2019-08-05] MEDS: CALCIUM (OYSTER SHELL) 500 MG TABLET (FP) PO SCH (09:51)
[2019-08-05] MEDS: ESCITALOPRAM OXALATE 10 MG TABLET (FP) PO SCH (09:51)
[2019-08-05] MEDS: ASCORBIC ACID 500 MG TABLET (FP) PO SCH (09:51)
[2019-08-05] MEDS: POLYETHYLENE GLYCOL 3350 119 GM BTL PO SCH (09:53)
[2019-08-05] MEDS ORDERED: HEPARIN NA (PORCINE) 5,000 UNITS/ML 1ML VIAL SQ SCH (10:00)
[2019-08-05 11:18] VITALS: BP 140/64; PULSE 82; TEMP 98.3
[2019-08-05] MEDS ORDERED: PHENYLEPHRINE 0.25%/STARCH 1 EACH SUPP.RECT RC ONE (12:00)
--- NOTE | 2019-08-05 12:08 | PN ---
Progress Note, Physician Chief Complaint: no cp or sob - Current Medication List Current Medications: Active Medications Acetaminophen (Tylenol -) 650 mg PO Q6H PRN PRN Reason: PAIN LEVEL 1-5 Last Admin: 08/04/19 21:05 Dose: 650 mg Amlodipine Besylate (Norvasc -) 5 mg PO DAILY [facility] Last Admin: 08/05/19 09:51 Dose: 5 mg Ascorbic Acid (Vitamin C -) 500 mg PO DAILY [facility] Last Admin: 08/05/19 09:51 Dose: 500 mg Calcium Carbonate (Os-Nixon 500mg -) 500 mg PO DAILY [facility] Last Admin: 08/05/19 09:51 Dose: 500 mg Cholecalciferol (Vitamin D3 -) 1,000 unit PO DAILY [facility] Last Admin: 08/05/19 09:51 Dose: 1,000 unit Docusate Sodium (Colace -) 100 mg PO DAILY [facility] Last Admin: 08/05/19 09:51 Dose: 100 mg Escitalopram Oxalate (Lexapro -) 5 mg PO DAILY [facility] Last Admin: 08/05/19 09:51 Dose: 5 mg Heparin Sodium (Porcine) (Heparin -) 5,000 unit SQ BID [facility] Last Admin: 08/05/19 09:51 Dose: 5,000 unit Magnesium Hydroxide (Milk Of Magnesia -) 30 ml PO Q8H PRN PRN Reason: INDIGESTION Last Admin: 08/04/19 10:59 Dose: 30 ml Mesalamine (Canasa Suppository -) 1,000 mg RC HS [facility] Last Admin: 08/04/19 21:05 Dose: 1,000 mg Morphine Sulfate (Morphine Sulfate) 2 mg IVPUSH Q4H PRN PRN Reason: PAIN LEVEL 6-10 Last Admin: 08/05/19 09:47 Dose: 2 mg Polyethylene Glycol (Miralax (For Daily Use) -) 17 gm PO DAILY [facility] Last Admin: 08/05/19 09:53 Dose: 17 gm - Objective Vital Signs: Vital Signs Temperature 98.3 F 08/05/19 09:00 Pulse Rate 82 08/05/19 09:00 Respiratory Rate 20 08/05/19 09:00 Blood Pressure 140/64 08/05/19 09:00 O2 Sat by Pulse Oximetry (%) 98 08/04/19 09:00 Constitutional: Yes: No Distress Cardiovascular: Yes: Regular Rate and Rhythm Respiratory: Yes: CTA Bilaterally Gastrointestinal: Yes: Soft Edema: No Peripheral Pulses WNL: No Neurological: Yes: Alert, Oriented Labs: CBC, BMP 08/03/19 08:00 08/03/19 08:00 INR, PTT INR 1.07 (0.83-1.09) 07/30/19 18:25 Laboratory Tests 08/03/19 08/03/19 08:00 08:00 WBC 6.2 Hgb 10.0 L Plt Count 138 D Sodium 135 L Potassium 4.1 Creatinine 0.6 Calcium 8.3 L Assessment/Plan IMP: Mechanical fall Pelvic fx Chronic HTN REC: 1. Continue home BP meds 2. 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 Unlikely cause of fall. Recommend extended outpatient holter to better assess SVT burden prior to any decisions re chronic B-Michael therapy. 3. Management fx as outlined by ortho 4. DVT prophylaxis
[2019-08-05 12:51] LABS: BASO % 0.2 % (0-2.0); EOS % 1.2 % (0-4.5); HEMATOCRIT 28.2 % (32.4-45.2); HEMOGLOBIN 9.7 GM/dL (10.7-15.3); LYMPH % 7.6 % (8-40); MCH 31.5 pg (25.7-33.7); MCHC 34.4 g/dl (32.0-36.0); MEAN CELL VOLUME 91.4 fl (80-96); MEAN PLT VOLUME 9.7 fl (7.5-11.1); MONO % 10.6 % (3.8-10.2); NEUT % 80.4 % (42.8-82.8); PLATELET COUNT 181 K/MM3 (134-434); RBC 3.09 M/mm3 (3.60-5.2); RDW 14.4 % (11.6-15.6); WHITE BLOOD COUNT 6.5 K/mm3 (4.0-10.0)
== END 2019-08-05 18:36 | DRG 536 ==
LOC: JER 14:02 → JERBED 22:31 → J6S 07-31 02:34
PROVIDERS: ADMIT Internal Medicine; ATTEND Internal Medicine
PROC: 30233N1 Transfusion of Nonautologous Red Blood Cells into Peripheral Vein, Percutaneous Approach (ICD-10-PCS; principal; 2019-08-01)
DX: S32.592A Other specified fracture of left pubis, initial encounter for closed fracture (principal); I47.1 Supraventricular tachycardia; R71.0 Precipitous drop in hematocrit; N83.202 Unspecified ovarian cyst, left side; S32.591A Other specified fracture of right pubis, initial encounter for closed fracture; I10 Essential (primary) hypertension; S30.0XXA Contusion of lower back and pelvis, initial encounter; G62.9 Polyneuropathy, unspecified; R33.9 Retention of urine, unspecified; R31.9 Hematuria, unspecified; K56.41 Fecal impaction; F41.8 Other specified anxiety disorders; M77.12 Lateral epicondylitis, left elbow; K64.9 Unspecified hemorrhoids; W01.0XXA Fall on same level from slipping, tripping and stumbling without subsequent striking against object, initial encounter; Y92.098 Other place in other non-institutional residence as the place of occurrence of the external cause; I25.10 Atherosclerotic heart disease of native coronary artery without angina pectoris; M25.511 Pain in right shoulder
CPT/HCPCS: 36415; 36430; 36511; 51600; 70450-TC; 71046-TC-FY; 72125-TC; 72192-TC; 73030-TC-RT-FY; 73523-TC-FY; 80048; 80053; 81003; 82550; 82553; 82607; 84443; 84484; 85025; 85610; 85730; 86850; 86900; 86901; 86922; 87086; 93005; 93010; 93225; 93226; 97116-GP; 97162-GP; 99284-25; J0131; J1644; J7030; P9038; P9058